=== PATIENT | male | born 1940 | race Caucasian/White ===

== ENCOUNTER → 2021-05-19 | Outpatient (CLI) | payer MEDICARE, SELFPAY ==
--- NOTE | 2021-05-19 12:58 | CT_ITS ---
STUDY: CT ABDOMEN AND PELVIS WITH CONTRAST REASON FOR EXAM: Male, 81 years old. POST ZARA FOB TEST-GI BLEED RADIATION DOSAGE (If Supplied By Facility): CTDIvol = ( 17.12 ) mGy, DLP = ( 929.12 ) mGycm TECHNIQUE: Transaxial images were obtained from the dome of the diaphragm to the symphysis pubis with oral contrast. Oral and amp; IV Readi-CAT and amp; 100mL Isovue-300 was administered. Sagittal and coronal images were reconstructed. Individualized dose optimization techniques were used for this CT. COMPARISON: None. FINDINGS: There are increased linear markings with areas of confluence at the lung bases suggestive of bibasilar atelectasis and/or scarring. Coronary artery calcification. There is calcification of the mitral valve annulus. Normal liver. I suspect tiny gallstones. There are multiple benign calcified granulomata of the spleen. Normal pancreas. Normal bilateral adrenal glands. Normal right kidney. There is a 2.4 cm cyst in the upper medial aspect of the left kidney. Normal visualized stomach. Normal small intestine. There are multiple colonic diverticula consistent with diverticulosis. Moderate amount of fecal material is seen in the colon. The appendix is visualized and appears normal. There is scattered atherosclerotic calcification of the abdominal aorta and its major visceral branches, without a demonstrated aneurysm. Normal inferior vena cava. Normal retroperitoneum. Normal urinary bladder. There is enlargement of the prostate gland. It measures 4.5 cm by 5.7 cm. This causes indentation at the bladder base. Normal abdominal wall. There are mild degenerative changes of the visualized lumbar spine. CT/Abdomen/Pelvis WITH Contrast IMPRESSION: Sigmoid diverticulosis. Moderate amount of fecal material is seen in the colon. Questionable tiny gallstones. Left renal cyst. Electronically Signed: Chirag Huizar MD at 14:09 EST , Service support ,
== END | disposition short-term general hospital (02) ==
PROVIDERS: PCP Internal Medicine; Referring Provider Internal Medicine Medical Oncology; Visit Provider Internal Medicine Medical Oncology
DX: K92.2 Gastrointestinal hemorrhage, unspecified (principal); D50.9 Iron deficiency anemia, unspecified
CPT/HCPCS: 74177; 96365; 96366; J1756; J7050; Q9967; A4216

== ENCOUNTER → 2021-06-07 14:42 | Outpatient (CLI) | payer MEDICARE, SELFPAY ==
[2021-06-07 16:06] LABS: Absolute Lymphocyte Count 1.07 X10^3/uL (0.83-4.51); Absolute Neutrophil Count 4.2 X10^3/uL (2.0-7.7); Basophil# 0.05 X10^3/uL; Basophil% 0.8 % (0-1); Eosinophil# 0.22 X10^3/uL; Eosinophils% 3.7 % (0-5); Hematocrit 30.4 % (40-54); Hemoglobin 9.5 g/dL (13.0-16.5); Lymphocyte # 1.07 X10^3/ul (0.83-4.51); Lymphocyte % 17.9 % (19-41); Mean Corp Hgb Conc 31.3 g/dL (32-36); Mean Corpuscular Hgb 32.6 pg (27.0-32.0); Mean Corpuscular Volume 104.5 fL (80-94); Mean Platelet Vol. 10.7 fl (6.2-12.0); Monocyte# 0.43 X10^3/uL; Monocyte% 7.2 % (0-10); NRBC Flagged by Analyzer 0 % (0-5); Neutrophil % 70.1 % (47-70); Platelet Count 163 K/mm3 (150-450); RBC Distribution Width CV 14.9 % (11.6-14.6); RBC Distribution Width SD 57.7 fl (35.1-43.9); RET-HE 36.9 pg (30-35); Red Blood Count 2.91 M/mm3 (4.6-6.2); Reticulocyte Count 1.57 % (0.5-1.5)
[2021-06-07 16:33] LABS: Ferritin 297 ng/mL (26-388); Iron 66 ug/dL (65-175); Iron Binding Capacity,Total 272 ug/dL (250-450); LDH 186 U/L (87-241); PERCENT IRON SATURATION 24.3 % (15.0-55.0)
[2021-06-09 09:07] LABS: Haptoglobin 157 mg/dL (34-355)
== END ==
PROVIDERS: PCP Internal Medicine; Visit Provider Nurse Practitioner Adult Health
DX: D50.9 Iron deficiency anemia, unspecified (principal); K92.2 Gastrointestinal hemorrhage, unspecified; R16.1 Splenomegaly, not elsewhere classified
CPT/HCPCS: 36415; 82728; 83010; 83540; 83550; 83615; 85025; 85045; 86880

== ENCOUNTER 2021-06-20 10:10 | Outpatient (CLI) | payer MEDICARE, SELFPAY ==
--- NOTE | 2021-06-20 10:16 | US_ITS ---
STUDY: ABDOMINAL ULTRASOUND - RIGHT UPPER QUADRANT REASON FOR VISIT: Male, 81 years old splenomegaly TECHNIQUE: Ultrasound evaluation of the right upper quadrant was performed with real-time and static dubon-scale imaging. TECHNICAL QUALITY: Adequate. COMPARISON: None. FINDINGS: Liver: The liver measures 15.6 cm. There is normal echogenicity of the liver. The bile ducts are within normal limits. There is hepatic color flow. The direction of portal flow is hepatopetal. There is no demonstrated mass lesion. Gallbladder: Normal distended gallbladder. The gallbladder wall measures 2.7 mm. There is a negative sonographic Prather''s sign. There is no pericholecystic fluid. There are no gallstones. Common Bile Duct (C.B.D.): The common bile duct measures 4.0 mm. Pancreas: Normal size of the head, body and tail of the pancreas. There is normal echogenicity of the pancreas. There is no demonstrated pancreatic mass or cyst. Right Kidney: Normal size of the right kidney. The right kidney measures 9.4 cm x 5.3 cm x 4.9 cm. Normal renal cortex. The right cortex measures 1.5 cm. There is no demonstrated renal mass or cyst. There is no right hydronephrosis. US/Liver IMPRESSION: Normal right upper quadrant ultrasound examination. Electronically Signed: Chirag Huizar MD at 14:23 EST , Service support ,
== END 2021-06-20 23:59 | disposition short-term general hospital (02) ==
LOC: US 10:13
PROVIDERS: PCP Internal Medicine; Referring Provider Nurse Practitioner Adult Health; Visit Provider Nurse Practitioner Adult Health
DX: R16.1 Splenomegaly, not elsewhere classified (principal)
CPT/HCPCS: 76705

== ENCOUNTER 2021-07-11 12:23 | Day surgery (SDC) | payer MEDICARE, SELFPAY ==
--- NOTE | 2021-07-11 | EGD_PTH ---
PATIENT: SAIGE HAGEN LOC: EN U#:[id number] AGE/SX: 81/M ROOM: RE07/11/[address]: Dr. Ashvin Jones DO : 1940 BED: DIS: 07/11/2021 SPEC #: [id number] RECD: 07/11/21 15:50 STATUS: JENNIFER GRAHAM #: [id number] RANULFO: 07/11/21 00:[address]: Ashvin Jones DEPT: SURGICAL PATHOLOGY RECD BY: Riley Gonsalez ENTERED: 07/12/21 09:34 SP TYPE: EGD BIOPSY CHARLES DR: Dr. Arvind Meyers MD Tissues: A - Gastric mucous membrane B - Transverse colon C - Sigmoid colon biopsy Procedures: Surgery Specimen Level IV HEADER OPERATION: Colonoscopy, EGD ([facility] [place]) PRE-OP DIAGNOSIS: Iron deficiency anemia, GI bleed, GI hemorrhage, splenomegaly TISSUE SUBMITTED: A ? Hepatic flexure biopsy, B ? Transverse colon biopsy, C ? Sigmoid polyp MICROSCOPIC DIAGNOSIS A. Colon at hepatic flexure, biopsy: Tubular adenoma. B. Transverse colon, biopsy: Tubular adenoma. C. Sigmoid colon polyp, biopsy: Tubular adenoma. AM:felicia 07/13/2021 MICROSCOPIC DESCRIPTION Slides are reviewed. GROSS DESCRIPTION A - Received in fixative is one container labeled with the patient's name and designated hepatic flexure biopsy. The specimen consists of one irregular fragment of light zavaleta soft tissue that measures 0.3 x 0.3 x 0.1 cm. The specimen is totally submitted in one cassette. B - Received in fixative is one container labeled with the patient's name and designated transverse colon biopsy. The specimen consists of one irregular fragment of light zavaleta soft tissue that measures 0.3 x 0.3 x 0.1 cm. The specimen is totally submitted in one cassette. C - Received in fixative is one container labeled with the patient's name and designated sigmoid polyp. The specimen consists of one irregular fragment of light zavaleta soft tissue that measures 0.4 x 0.2 x 0.1 cm. The specimen is totally submitted in one cassette. / AURORA:felicia 07/12/2021 TC:5 CPT: 55539 x3
[2021-07-11 12:50] VITALS: BP 137/58; PULSE 56; RESP 16; TEMP 36.4; O2SAT 100; BMI 26.9
[2021-07-11] MEDS: Lactated Ringers 1,000 ML 15 ML IV (13:02)
--- NOTE | 2021-07-11 13:48 | PCM.HP.BLA ---
History and Physical Date of Admission: 07/11/21 SAIGE HAGEN, is a 81 M who presents to the office today for evaluation of iron deficiency anemia. History of CKDIII and iron deficiency anemia requiring blood transfusions and later weekly iron transfusions. EGD and colonoscopy performed June 2020 and he reports they were normal. Stool occult 05/05/21 positive. Reports dark colored stool. CT abd/pel 05/19/21with findings of lung atelectasis and/or scarring. Coronary artery calcification. Tiny gallbladder stone suspect. Multiple diverticula consistent with diverticulosis. Moderate amount of fecal material in colon. Prostate enlargement. Left renal cyst. ROS Const Constitutional: No anorexia, fatigue, fever(s), weight change or sleep problems Eyes Eyes: No change in vision ENT ENT: No abnormal hearing, difficulty swallowing, mouth lesions, tongue swelling or throat swelling Resp Respiratory: No cough or shortness of breath Cardio Cardiology: No chest pain at rest, chest pain with exertion, shortness of breath or dyspnea on exertion Gastro GI: No difficulty swallowing Genitourinary Male: No difficulty urinating or burning urination Musc Musculoskeletal: No joint pain, joint swelling, muscle weakness or decreased muscle mass Skin Skin: No hair loss in leg, yellowing of the eye, itchy eyes, rash, skin ulcer or skin swelling Neuro Neurology: No abnormal hearing, abnormal movements, confusion, unsteady gait/balance or memory loss Psych Psychiatric: No anxiety, No confusion and No memory loss Endo Endocrine: No fatigue or weight change Aller/Imm Allergy/Immunologic: No itchy eyes, throat swelling or tongue swelling Tommy/Lymp Hematologic/Lymphatic: No easy bleeding, easy bruising or enlarged lymph nodes Assessment and Plan Assessment and Plan (1) Iron (Fe) deficiency anemia: Status: Acute Qualifiers: Iron deficiency anemia type: unspecified iron deficiency Qualified Code(s): D50.9 - Iron deficiency anemia, unspecified Comment: CKD associated with Iron deficiency Anemia, 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 Orders: Orders: Direct Antiglobulin Molly HARRIETT Today Ferritin Today Iron+Iron Binding Capacity Today LDH Today CBC W/Diff, Automated Today Retic Panel Count Today Plan - Dr. Lock Friend, DO: We will perform an upper and lower endoscopy and possible capsule endoscopy. We will also check labs for hemolysis including Molly test, ferritin, iron, TIBC, LDH, reticulocyte count. (2) GI bleed: Status: Acute Qualifiers: GI bleed type/associated pathology: unspecified gastrointestinal hemorrhage type Qualified Code(s): K92.2 - Gastrointestinal hemorrhage, unspecified Comment: FOBT positive stools R/O malignancy. CT a/p on 05/19/2021 is negative. Orders: Orders: Direct Antiglobulin Molly HARRIETT Today Ferritin Today Iron+Iron Binding Capacity Today LDH Today CBC W/Diff, Automated Today Retic Panel Count Today Plan - Dr. Ashvin Jones, DO: If patient is not found to have any bleeding in an upper or lower GI tract. Perform capsule endoscopy. (3) Splenomegaly: Status: Acute Orders: Orders: Direct Antiglobulin Molly HARRIETT Today Ferritin Today Iron+Iron Binding Capacity Today LDH Today CBC W/Diff, Automated Today Retic Panel Count Today Plan - Dr. Lock Friend, DO: Patient does have mild splenomegaly. He has no history of liver disease. We will have to evaluate his liver more thoroughly with an ultrasound and possibly FibroScan. Coding Level of Care Code Off vis,new,level 4 Diagnoses Iron (Fe) deficiency anemia D50.9 Iron deficiency anemia type: unspecified iron deficiency GI bleed K92.2 GI bleed type/associated pathology: unspecified gastrointestinal hemorrhage type Splenomegaly R16.1 I have re-examined the patient. There are no clinical changes since date of exam.
--- NOTE | 2021-07-11 14:27 | OP.CCLET_ITS ---
02/22/2022 Arvind Meyers Re : Upper GI endoscopy procedure for Deshawn Chatman Dear Luigi This procedure was performed on Sunday, July 11, 2021. My impressions and recommendations are as follows: Impressions : - Normal esophagus. - Medium-sized hiatal hernia. - Normal stomach. - Three bleeding angiodysplastic lesions in the duodenum. Treated with argon plasma coagulation (APC). - No specimens collected. Recommendations : - Discharge patient to home. - Resume previous diet. - Continue present medications. - Await pathology results. - Return to my office. My findings are described in the full procedure note, which is enclosed. If I can be of further assistance, please feel free to contact me at . Sincerely, Ashvin Friend, 07/11/2021 2:26:47 PM This report has been signed electronically.
--- NOTE | 2021-07-11 14:27 | OP.EGD_ITS ---
Patient Name: Deshawn Chatman Procedure Date: 07/11/2021 1:56 PM Date of : 1940 Age: 81 Procedure: Upper GI endoscopy Indications: Iron deficiency anemia Providers: Ashvin Jones DO Referring MD: Arvind Meyers Medicines: See the Anesthesia note for documentation of the administered medications Patient Profile: This is an 81 year old male. Refer to note in patient chart for documentation of history and physical. Patient has symptoms. Complications: No immediate complications. Procedure: Pre-Anesthesia Assessment: - Prior to the procedure, a History and Physical was performed, and patient medications and allergies were reviewed. The risks and benefits of the procedure and the sedation options and risks were discussed with the patient. All questions were answered and informed consent was obtained. Patient identification and proposed procedure were verified by the physician in the pre-procedure area. Mental Status Examination: alert and oriented. Airway Examination: normal oropharyngeal airway and neck mobility. Respiratory Examination: clear to auscultation. CV Examination: normal. Prophylactic Antibiotics: The patient does not require prophylactic antibiotics. Prior Anticoagulants: The patient has taken no previous anticoagulant or antiplatelet agents. After reviewing the risks and benefits, the patient was deemed in satisfactory condition to undergo the procedure. The anesthesia plan was to use moderate sedation / analgesia (conscious sedation). Immediately prior to administration of medications, the patient was re-assessed for adequacy to receive sedatives. The heart rate, respiratory rate, oxygen saturations, blood pressure, adequacy of pulmonary ventilation, and response to care were monitored throughout the procedure. The physical status of the patient was re-assessed after the procedure. After obtaining informed consent, the endoscope was passed under direct vision. Throughout the procedure, the patient's blood pressure, pulse, and oxygen saturations were monitored continuously. The Endoscope was introduced through the mouth, and advanced to the jejunum. The upper GI endoscopy was accomplished without difficulty. The patient tolerated the procedure well. Moderate Sedation: Moderate (conscious) sedation was administered by the endoscopy nurse and supervised by the endoscopist. The following parameters were monitored: oxygen saturation, heart rate, blood pressure, and response to care. Total physician intraservice time was 15 minutes. Scope In: 2:08:56 PM Scope Out: 2:22:12 PM Total Procedure Duration Time 0 hours 13 minutes 16 seconds Findings: The examined esophagus was normal. A medium-sized hiatal hernia was present. The entire examined stomach was normal. Three 5 mm angiodysplastic lesions with bleeding were found in the second portion of the duodenum, in the third portion of the duodenum and in the fourth portion of the duodenum. Coagulation for hemostasis using argon plasma at 0.3 liters/minute and 20 borrego was successful. Estimated blood loss was minimal. Impression: - Normal esophagus. - Medium-sized hiatal hernia. - Normal stomach. - Three bleeding angiodysplastic lesions in the duodenum. Treated with argon plasma coagulation (APC). - No specimens collected. Recommendation: - Discharge patient to home. - Resume previous diet. - Continue present medications. - Await pathology results. - Return to my office. Procedure Code(s): --- Professional --- 42911, Esophagogastroduodenoscopy, flexible, transoral; with control of bleeding, any method 09055, 59, Moderate sedation services provided by the same physician or other qualified health career information specialist performing the diagnostic or therapeutic service that the sedation supports, requiring the presence of an independent trained observer to assist in the monitoring of the patient's level of consciousness and physiological status; initial 15 minutes of intraservice time, patient age 5 years or older CPT copyright 2017 [employer]. All rights reserved. The codes documented in this report are preliminary and upon service counter cashier review may be revised to meet current compliance requirements. Ashvin Jones DO 07/11/2021 2:26:47 PM This report has been signed electronically. Number of Addenda: 1 Note Initiated On: 07/11/2021 1:56 PM Addendum Number: 1 Addendum Date: 02/22/2022 6:24:31 AM MAC was used instead of moderate sedation for the patient. Ashvin Jones DO 02/22/2022 6:24:37 AM This report has been signed electronically.
[2021-07-11 14:48] VITALS: BP 137/58; BP 156/64; PULSE 57; RESP 16; TEMP 36.4; O2SAT 98
--- NOTE | 2021-07-11 14:51 | OP.CCLET_ITS ---
02/22/2022 Arvind Meyers Re : Colonoscopy procedure for Deshawn Chatman Dear Luigi This procedure was performed on Sunday, July 11, 2021. My impressions and recommendations are as follows: Impressions : - One 5 mm polyp in the sigmoid colon in the transverse colon at the hepatic flexure, removed with a hot snare. Resected and retrieved. Recommendations : - Written discharge instructions were provided to the patient. - The signs and symptoms of potential delayed complications were discussed with the patient. - Patient has a contact number available for emergencies. - Return to normal activities tomorrow. - Resume previous diet. - Continue present medications. - Await pathology results. - Repeat colonoscopy in 3 years for surveillance of multiple polyps. - Return to GI office. My findings are described in the full procedure note, which is enclosed. If I can be of further assistance, please feel free to contact me at . Sincerely, Ashvin Jones, 07/11/2021 2:51:14 PM This report has been signed electronically.
--- NOTE | 2021-07-11 14:51 | OP.COLON_ITS ---
Patient Name: Deshawn Chatman Procedure Date: 07/11/2021 2:22 PM Date of : 1940 Age: 81 Procedure: Colonoscopy Indications: Iron deficiency anemia Providers: Ashvin Jones DO Referring MD: Arvind Meyers Medicines: See the Anesthesia note for documentation of the administered medications Patient Profile: This is an 81 year old male. Refer to note in patient chart for documentation of history and physical. Patient has symptoms. Last Colonoscopy: 1 year ago. Complications: No immediate complications. Procedure: Pre-Anesthesia Assessment: - Prior to the procedure, a History and Physical was performed, and patient medications and allergies were reviewed. The risks and benefits of the procedure and the sedation options and risks were discussed with the patient. All questions were answered and informed consent was obtained. Patient identification and proposed procedure were verified by the physician in the pre-procedure area. Mental Status Examination: alert and oriented. Airway Examination: normal oropharyngeal airway and neck mobility. Respiratory Examination: clear to auscultation. CV Examination: normal. Prophylactic Antibiotics: The patient does not require prophylactic antibiotics. Prior Anticoagulants: The patient has taken no previous anticoagulant or antiplatelet agents. After reviewing the risks and benefits, the patient was deemed in satisfactory condition to undergo the procedure. The anesthesia plan was to use moderate sedation / analgesia (conscious sedation). Immediately prior to administration of medications, the patient was re-assessed for adequacy to receive sedatives. The heart rate, respiratory rate, oxygen saturations, blood pressure, adequacy of pulmonary ventilation, and response to care were monitored throughout the procedure. The physical status of the patient was re-assessed after the procedure. After I obtained informed consent, the scope was passed under direct vision. Throughout the procedure, the patient's blood pressure, pulse, and oxygen saturations were monitored continuously. The colonoscope was introduced through the anus and advanced to the cecum, identified by appendiceal orifice and ileocecal valve. The colonoscopy was performed without difficulty. The patient tolerated the procedure well. The quality of the bowel preparation was good. Moderate Sedation: Moderate (conscious) sedation was administered by the endoscopy nurse and supervised by the endoscopist. The patient's oxygen saturation, heart rate, blood pressure and response to care were monitored. Total physician intraservice time was 15 minutes. Scope In: 2:30:03 PM Scope Withdrawal Time 0 hours 10 minutes 4 seconds Scope Out: 2:43:58 PM Total Procedure Duration Time 0 hours 13 minutes 55 seconds Findings: The perianal and digital rectal examinations were normal. A 5 mm polyp was found in the sigmoid colon transverse colon hepatic flexure. The polyp was sessile. Polypectomy was attempted, initially using a hot snare. Polyp resection was incomplete with this device. This intervention then required a different device and polypectomy technique. The polyp was removed with a hot snare. Resection and retrieval were complete. Impression: - One 5 mm polyp in the sigmoid colon in the transverse colon at the hepatic flexure, removed with a hot snare. Resected and retrieved. Recommendation: - Written discharge instructions were provided to the patient. - The signs and symptoms of potential delayed complications were discussed with the patient. - Patient has a contact number available for emergencies. - Return to normal activities tomorrow. - Resume previous diet. - Continue present medications. - Await pathology results. - Repeat colonoscopy in 3 years for surveillance of multiple polyps. - Return to GI office. Procedure Code(s): --- Professional --- 98110, Colonoscopy, flexible; with removal of tumor(s), polyp(s), or other lesion(s) by snare technique 52148, 59, Moderate sedation services provided by the same physician or other qualified health lawn care professional performing the diagnostic or therapeutic service that the sedation supports, requiring the presence of an independent trained observer to assist in the monitoring of the patient's level of consciousness and physiological status; initial 15 minutes of intraservice time, patient age 5 years or older CPT copyright 2017 [employer]. All rights reserved. The codes documented in this report are preliminary and upon energy manager review may be revised to meet current compliance requirements. Ashvin Jones DO 07/11/2021 2:51:14 PM This report has been signed electronically. Number of Addenda: 1 Note Initiated On: 07/11/2021 2:22 PM Addendum Number: 1 Addendum Date: 02/22/2022 6:24:46 AM MAC was used instead of moderate sedation for the patient. Ashvin Jones DO 02/22/2022 6:24:50 AM This report has been signed electronically.
[2021-07-11 14:55] VITALS: BP 137/58; BP 147/104; PULSE 50; RESP 16; O2SAT 99
[2021-07-11 15:00] VITALS: BP 137/58; BP 163/62; PULSE 53; RESP 16; O2SAT 99
[2021-07-11 15:05] VITALS: BP 137/58; BP 151/52; PULSE 45; RESP 16; TEMP 36.8; O2SAT 99
[2021-07-11 15:20] VITALS: BP 137/58
== END 2021-07-11 23:59 | disposition home or self-care (01) ==
LOC: EN 12:24 → AC 12:25
PROVIDERS: PCP Internal Medicine; Referring Provider Internal Medicine; Visit Provider Internal Medicine Gastroenterology
PROC: 0DJD8ZZ Inspection of Lower Intestinal Tract, Via Natural or Artificial Opening Endoscopic (ICD-10-PCS; CPT 45378; principal; 2021-07-11 13:40)
DX: K31.811 Angiodysplasia of stomach and duodenum with bleeding (principal); I50.30 Unspecified diastolic (congestive) heart failure; I11.0 Hypertensive heart disease with heart failure; K21.9 Gastro-esophageal reflux disease without esophagitis; K44.9 Diaphragmatic hernia without obstruction or gangrene; D12.3 Benign neoplasm of transverse colon; D12.5 Benign neoplasm of sigmoid colon; D50.9 Iron deficiency anemia, unspecified; I65.23 Occlusion and stenosis of bilateral carotid arteries; I25.2 Old myocardial infarction; E78.00 Pure hypercholesterolemia, unspecified; M10.9 Gout, unspecified; I44.0 Atrioventricular block, first degree; E07.9 Disorder of thyroid, unspecified; I25.10 Atherosclerotic heart disease of native coronary artery without angina pectoris; I35.0 Nonrheumatic aortic (valve) stenosis; R16.1 Splenomegaly, not elsewhere classified; Z90.49 Acquired absence of other specified parts of digestive tract; Z79.01 Long term (current) use of anticoagulants; Z79.899 Other long term (current) drug therapy; Z86.73 Personal history of transient ischemic attack (TIA), and cerebral infarction without residual deficits
CPT/HCPCS: 45385; 43255; 87426; 88305; J7120

== ENCOUNTER 2023-12-27 12:12 | Inpatient (IN) | payer MEDICARE, SELFPAY ==
[2023-12-27] VITALS (18 sets, daily range): BP systolic 92–147; BP diastolic 37–81; PULSE 47–64; RESP 13–19; TEMP 35.7–36.6; O2SAT 94–100; BMI 26.4
--- NOTE | 2023-12-27 12:45 | EX.ED.DYSGE1 ---
HPI <XAVIER Nicholas - Last Filed: 12/27/23 13:19> History of Present Illness Chief Complaint: GI Bleed Narrative Narrative: Patient is an 83-year-old male with a long history of WI, TIA/stroke who is currently on Eliquis twice a day history of chronic anemia, chronic kidney disease history of GI bleeding who presents to the emergency department from outpatient hematology/oncology. The patient over the last several weeks has been going to [facility] and receiving blood transfusions, today, they did check the patient's stool which is positive for bleeding. I spoke with the nurse practitioner taking care of this patient at the hematology office, the plan will be to admit the patient, to speak with Dr. Jones and do a GI workup. Patient denies any pain. Last blood transfusion was today. Patient also had some personal issues such as his son committed suicide yesterday, so there is added stress. Patient is here for evaluation. Patient did have a positive stool occult today as well as 1 unit of packed red blood cells given today. PFSH <XAVIER Nicholas - Last Filed: 12/27/23 13:19> [facility] Medical History Hypersomnia Anxiety and depression Periodic limb movement Vitamin D deficiency Chronic kidney disease, stage 3 unspecified Angiodysplasia of duodenum with hemorrhage Sinus bradycardia Diverticulosis Macrocytosis Wears hearing aid Wears glasses Wears dentures Depression Thyroid disease Gout History of renal disease Low iron Anemia High cholesterol Restless legs Gastric reflux Non-smoker Shortness of breath on exertion History of echocardiogram History of stress test Hypertension Cardiology follow-up encounter Hx of cardiac murmur History of heart attack Aortic stenosis Diastolic heart failure CVA (cerebral vascular accident) Accelerated essential hypertension Home Medications ?Medication ?Instructions ?Recorded ?Last Taken ?Type allopurinol 100 mg tablet 100 mg PO DAILY 04/20/21 12/27/23 History arctic sea 4 tablet PO DAILY 04/20/21 12/27/23 History ferrous gluconate 325 mg (37 mg 325 mg PO BID 04/20/21 12/27/23 History iron) tablet niacin 500 mg tablet 500 mg PO DAILY 04/20/21 12/27/23 History pantoprazole 40 mg tablet,delayed 40 mg PO DAILY 04/20/21 12/27/23 History release simvastatin 40 mg tablet 40 mg PO DAILY 04/20/21 12/27/23 History topiramate 50 mg tablet 50 mg PO BID 04/20/21 12/27/23 History vitamins A,C,G-ylbi-zlkxmn 4,296 1 cap PO BID 04/20/21 12/27/23 History mcg-226 mg-90 mg capsule (PreserVision AREDS) lisinopril 5 mg tablet 5 mg PO DAILY 05/19/21 12/27/23 History buspirone 10 mg tablet 10 mg PO BID 12/26/23 12/27/23 History ezetimibe 10 mg tablet 10 mg PO DAILY 12/26/23 12/27/23 History nitroglycerin 0.4 mg sublingual 0.4 mg sublingual Q5M PRN chest 12/26/23 Unknown History tablet pain apixaban 2.5 mg tablet (Eliquis) 2.5 mg PO BID 12/27/23 12/27/23 History levothyroxine 150 mcg tablet 150 mcg PO DAILY 12/27/23 12/27/23 History mecobalamin (vitamin B12) 2,500 2,500 mcg PO DAILY 12/27/23 12/27/23 History mcg chewable tablet sertraline 100 mg tablet 100 mg PO Q24H 12/27/23 12/27/23 History Allergy/AdvReac Type Severity Reaction Status Date / Time bee venom protein (honey bee) Allergy Anaphylaxis Verified 12/27/23 12:14 Family History Mother CVA (cerebral vascular accident) Father CHF (congestive heart failure) Surgical History History of tonsillectomy History of colonoscopy History of coronary artery stent placement Hx of appendectomy Social History Smoking Status: Never smoker alcohol intake: current alcohol intake frequency: a few times a month substance use type: does not use ROS <XAVIER Nicholas - Last Filed: 12/27/23 13:19> ROS ED ROS Narrative Constitutional: Negative for fever, chills, weight loss. Positive for weakness Eyes: Negative for vision loss, vision change, double vision ENT: Negative for any sore throat, ear pain, congestion Cardiovascular: Negative for any chest pain, tightness, palpitations Respiratory: Negative for any cough, sputum production, hemoptysis, dyspnea, dyspnea on exertion, orthopnea Gastrointestinal: Negative for any abdominal pain, nausea, vomiting, diarrhea, constipation, blood in vomit. Positive blood in the stool : Negative for any urinary frequency, dysuria, retention, blood in urine Muscle skeletal: Negative for any neck pain, back pain Neurological: Negative for any headache, syncope, dizziness Skin: Negative for any rashes, itching, abrasions, lacerations Psychiatric: Negative for any depression, anxiety, stress, suicidal ideation, homicidal ideation Hematologic: Negative for any excessive bruising, easy bleeding EXAM <XAVIER Nicholas - Last Filed: 12/27/23 13:19> Physical Exam Narrative Exam Narrative: Vital signs reviewed. Vital signs are stable, patient does have a pale appearance. HEET: Head normocephalic atraumatic, TMs clear bilaterally. Posterior pharynx is clear, moist mucous membranes. Nares clear bilaterally. Neck: Supple with no lymphadenopathy or tenderness. No signs of meningismus. Cardiac: Bradycardic rhythm with a systolic murmur, no gallops or rubs, equal peripheral pulses bilaterally. Respiratory: Lungs clear to auscultation bilaterally. No chest tenderness. Abdomen: Soft, nontender, nondistended. No abdominal bruit or pulsatile masses. No hepatosplenomegaly Extremities: No peripheral edema, no signs of gross trauma or deformity. Active full range of motion of all extremities. Neuro: Cranial nerves II through XII intact, no focal neurological deficits. Skin: Clean dry and intact with no rash, purpura, petechiae, vesicles or pustules. Backs/flank: No CVA tenderness, no midline spinal tenderness, no deformity. Psych: Normal mood and affect. No SI, HI or acute psychosis. Const Vital Signs: 12/27/23 12:12 12/27/23 13:08 12/27/23 13:18 Temperature 96.3 F L 98 F Temperature Source Temporal Pulse Rate 55 L 57 L 56 L Respiratory Rate 14 19 H 13 Blood Pressure 130/47 H 140/53 H 125/51 H Blood Pressure Mean 74 82 75 Pulse Ox 100 95 95 Oxygen Delivery Method Room Air <Dr. Emiliana Travis DO - Last Filed: 12/27/23 13:27> Physical Exam Const Vital Signs: 12/27/23 12:12 12/27/23 13:08 12/27/23 13:18 Temperature 96.3 F L 98 F Temperature Source Temporal Pulse Rate 55 L 57 L 56 L Respiratory Rate 14 19 H 13 Blood Pressure 130/47 H 140/53 H 125/51 H Blood Pressure Mean 74 82 75 Pulse Ox 100 95 95 Oxygen Delivery Method Room Air [facility] <XAVIER Nicholas - Last Filed: 12/27/23 13:19> [facility] Lab Data Labs: Laboratory Results - last 24 hr 12/27/23 12:45 WBC 6.0 RBC 2.28 L Hgb 7.4 L Hct 23.5 L MCV 103.1 H MCH 32.5 H MCHC 31.5 L RDW Std Deviation 62.4 H RDW Coeff of Marcia 16.8 H Plt Count 146 L MPV 9.9 Immature Gran % (Auto) 0.500 Neut % (Auto) 65.6 Lymph % (Auto) 21.6 [place] % (Auto) 8.6 Eos % (Auto) 3.0 Baso % (Auto) 0.7 Absolute Neuts (auto) 4.0 Absolute Lymphs (auto) 1.30 Nucleated RBC % 0 PT 15.8 H INR 1.3 Sodium 141 Potassium 5.5 H Chloride 120 H Carbon Dioxide 18.0 L Anion Gap 3 L BUN 80 H Creatinine 2.19 H Est GFR (MDRD) Af Amer 37 L Est GFR (MDRD) Non-Af 31 L BUN/Creatinine Ratio 36.5 H Glucose 107 H Calcium 8.6 Total Bilirubin 0.60 AST 13 L ALT 20 Alkaline Phosphatase 73 Total Protein 5.8 L Albumin 2.9 L Globulin 2.9 Albumin/Globulin Ratio 1.0 Treatment and Re-Evaluation :: Differential diagnosis includes however is not limited to: Acute rectal bleeding, upper GI bleed, lower GI bleed, anemia, weakness Patient appears to be in no obvious respiratory distress vital signs are stable, patient is nontoxic-appearing. Presenting to the emergency department for continued blood in stool, being on Eliquis, receiving multiple blood transfusions. Patient will receive some basic laboratory values, patient's hemoglobin was 7.2 yesterday, patient did receive 1 unit of blood this morning, patient also had a positive stool occult this morning. Patient is here to be admitted to the hospital to be evaluated by Dr. Jones. Patient on reevaluation was in no distress. Patient's CBC shows a hemoglobin of 7.4, this is only slight increase after 1 unit of packed red blood cells. Patient's PT shows 15.8, INR 1.3, I did reach out to Dr. Jones, he does plan on taking the patient to do a scope today. I will reach out to the hospitalist to admit the patient. Spoke with hospitalist, he will admit the patient to PCU full. Spoke with Dr. Jones, the plan will be to scope the patient today. Patient made aware, patient stable for admission. <Dr. Emiliana Travis, DO - Last Filed: 12/27/23 13:27> [facility] MDM Narrative Medical decision making narrative: I have personally performed a face to face assessment of the patient and have reviewed the CHESTER Note. I performed a substantive portion of the visit including all aspects of the following. My ruvalcaba findings include: History is [patient presents the emergency department with complaint of anemia and GI bleed. Patient states that he has been receiving blood over the last several weeks. He had 2 units of packed red cells 4 days ago and 1 unit yesterday. Patient has positive Hemoccult. Refer to the ER for admission and evaluation by GI. Patient denies abdominal pain. No history of peptic ulcer disease. Patient on Eliquis for history of stroke. Patient generally has had some exertional dyspnea and generalized weakness.] Exam is [HEENT-PERRLA, EOMI. Cranial nerves II through XII grossly intact. TMs clear. Mucous membranes moist. No adenopathy. Patient pale appearing with some conjunctival pallor. Cardiovascular-regular rate and rhythm without murmur or ectopy Lungs-clear to auscultation, chest wall stable without crepitus or subcu emphysema Abdomen-normoactive bowel sounds, soft, nontender, no rebound or rigidity, no peritoneal signs. Extremities-intact ?4, normal range of motion, normal pulses, atraumatic] Medical Decison Making [IV line established. CBC with differential obtained showing a 6.0 with hemoglobin 7.4 and platelet count of 146. Chemistries show sodium 141 with potassium 5.5 and chloride 120 and CO2 of 18. BUN was 80 and creatinine 2.19. LFTs unremarkable. Case was discussed with behavioral health case manager who recommended admission for EGD and possible colonoscopy to evaluate source of bleeding. Case will be discussed with hospitalist to evaluate patient for admission.] Other additions or changes: [None] Lab Data Attestation: I reviewed the patient's lab results. Labs: Laboratory Results - last 24 hr 12/27/23 12:45 WBC 6.0 RBC 2.28 L Hgb 7.4 L Hct 23.5 L MCV 103.1 H MCH 32.5 H MCHC 31.5 L RDW Std Deviation 62.4 H RDW Coeff of Marcia 16.8 H Plt Count 146 L MPV 9.9 Immature Gran % (Auto) 0.500 Neut % (Auto) 65.6 Lymph % (Auto) 21.6 [place] % (Auto) 8.6 Eos % (Auto) 3.0 Baso % (Auto) 0.7 Absolute Neuts (auto) 4.0 Absolute Lymphs (auto) 1.30 Nucleated RBC % 0 PT 15.8 H INR 1.3 Sodium 141 Potassium 5.5 H Chloride 120 H Carbon Dioxide 18.0 L Anion Gap 3 L BUN 80 H Creatinine 2.19 H Est GFR (MDRD) Af Amer 37 L Est GFR (MDRD) Non-Af 31 L BUN/Creatinine Ratio 36.5 H Glucose 107 H Calcium 8.6 Total Bilirubin 0.60 AST 13 L ALT 20 Alkaline Phosphatase 73 Total Protein 5.8 L Albumin 2.9 L Globulin 2.9 Albumin/Globulin Ratio 1.0 Discharge Plan Dx/Rx/DC Orders Clinical Impression: Acute on chronic anemia, GI bleed Disposition Disposition: Acute Care Hospital [facility]
[2023-12-27 12:51] LABS: Basophil# 0.04 X10^3/uL; Basophil% 0.7 % (0-1); Eosinophil# 0.18 X10^3/uL; Hematocrit 23.5 % (40-54); Hemoglobin 7.4 g/dL (13.0-16.5); Lymphocyte % 21.6 % (19-41); Mean Corp Hgb Conc 31.5 g/dL (32-36); Mean Corpuscular Hgb 32.5 pg (27.0-32.0); Mean Corpuscular Volume 103.1 fL (80-94); Mean Platelet Vol. 9.9 fl (6.2-12.0); Monocyte# 0.52 X10^3/uL; Monocyte% 8.6 % (0-10); NRBC Flagged by Analyzer 0 % (0-5); Neutrophil # 3.95 X10^3/uL (2.7-7.7); Neutrophil % 65.6 % (47-70); Platelet Count 146 K/mm3 (150-450); RBC Distribution Width CV 16.8 % (11.6-14.6); RBC Distribution Width SD 62.4 fl (35.1-43.9); Red Blood Count 2.28 M/mm3 (4.6-6.2)
[2023-12-27 13:00] LABS: International Normalized Ratio 1.3; Prothrombin Time (Protime)PT. 15.8 SECONDS (11.7-14.9)
[2023-12-27 13:08] LABS: AST(SGOT) 13 U/L (15-37); Alanine Aminotransfer ALT/SGPT 20 U/L (16-61); Albumin, Serum 2.9 g/dL (3.2-5.0); Alkaline Phosphatase 73 U/L (45-117); Anion Gap 3 (5-15); BUN 80 mg/dL (7-18); BUN/Creat Ratio 36.5 RATIO (10-20); Calcium,Total 8.6 mg/dL (8.5-10.1); Chloride 120 mmol/L (98-107); Creatinine, Serum 2.19 mg/dL (0.70-1.30); EST Glomerular Filtration Rate 31 mL/min (>60); Est Glom Filt Rate - Afr Amer 37 mL/min (>60); Globulin 2.9 g/dL (2.2-4.2); Glucose 107 mg/dL (74-106); Potassium 5.5 mmol/L (3.5-5.1); Protein, Total 5.8 g/dL (6.4-8.2); Sodium Level 141 mmol/L (136-145)
--- NOTE | 2023-12-27 13:13 | HP.PCM.HOS_ITS ---
[facility] - General General Date of Admission: 12/27/23 Date of Service: 12/27/23 Chief Complaint: Severe anemia. Stool for occult blood positive. HPI Narrative SAIGE HAGEN, is a 83 M who was sent to ED from outpatient hematology office for stool for occult blood positive and severe anemia. For last several weeks, patient has been receiving PRBC transfusion at [facility]. When asked about blood in the stool, patient states he flushes the stool and does not see it but states she did not notice black stool bright red in stool. Denies hematemesis nausea or vomiting. No acute symptoms pertaining to chest chest pain or shortness of breath or palpitation. Patient has history of a stroke 2 times in the past and is on Eliquis 2.5 mg twice daily. Patient also has chronic kidney disease and follows Dr. Sosa hematology oncology office. In ED, blood pressure 130/47 heart rate 55/min. No hypoxia or tachypnea. Labs show H&H 7.4/23.5%. GI consulted from ED. The patient is being taken to endoscopy suite for EGD [facility] Medical History Hypersomnia Anxiety and depression Periodic limb movement Vitamin D deficiency Chronic kidney disease, stage 3 unspecified Angiodysplasia of duodenum with hemorrhage Sinus bradycardia Diverticulosis Macrocytosis Wears hearing aid Wears glasses Wears dentures Depression Thyroid disease Gout History of renal disease Low iron Anemia High cholesterol Restless legs Gastric reflux Non-smoker Shortness of breath on exertion History of echocardiogram History of stress test Hypertension Cardiology follow-up encounter Hx of cardiac murmur History of heart attack Aortic stenosis Diastolic heart failure CVA (cerebral vascular accident) Accelerated essential hypertension Home Medications ?Medication ?Instructions ?Recorded ?Last Taken ?Type allopurinol 100 mg tablet 100 mg PO DAILY 04/20/21 12/27/23 History arctic sea 4 tablet PO DAILY 04/20/21 12/27/23 History ferrous gluconate 325 mg (37 mg 325 mg PO BID 04/20/21 12/27/23 History iron) tablet niacin 500 mg tablet 500 mg PO DAILY 04/20/21 12/27/23 History pantoprazole 40 mg tablet,delayed 40 mg PO DAILY 04/20/21 12/27/23 History release simvastatin 40 mg tablet 40 mg PO DAILY 04/20/21 12/27/23 History topiramate 50 mg tablet 50 mg PO BID 04/20/21 12/27/23 History vitamins A,C,U-umtx-xgxgxj 4,296 1 cap PO BID 04/20/21 12/27/23 History mcg-226 mg-90 mg capsule (PreserVision AREDS) lisinopril 5 mg tablet 5 mg PO DAILY 05/19/21 12/27/23 History buspirone 10 mg tablet 10 mg PO BID 12/26/23 12/27/23 History ezetimibe 10 mg tablet 10 mg PO DAILY 12/26/23 12/27/23 History nitroglycerin 0.4 mg sublingual 0.4 mg sublingual Q5M PRN chest 12/26/23 Unknown History tablet pain apixaban 2.5 mg tablet (Eliquis) 2.5 mg PO BID 12/27/23 12/27/23 History levothyroxine 150 mcg tablet 150 mcg PO DAILY 12/27/23 12/27/23 History mecobalamin (vitamin B12) 2,500 2,500 mcg PO DAILY 12/27/23 12/27/23 History mcg chewable tablet sertraline 100 mg tablet 100 mg PO Q24H 12/27/23 12/27/23 History Allergy/AdvReac Type Severity Reaction Status Date / Time bee venom protein (honey bee) Allergy Anaphylaxis Verified 12/27/23 12:14 Family History Mother CVA (cerebral vascular accident) Father CHF (congestive heart failure) Surgical History History of tonsillectomy History of colonoscopy History of coronary artery stent placement Hx of appendectomy Social History Smoking Status: Never smoker alcohol intake: current alcohol intake frequency: a few times a month substance use type: does not use ROS ROS Narrative Constitutional: Reports chronic fatigue and weakness but no acute symptoms. No fever. HEENT: Reports systems reviewed and no addt'l complaints, except as documented Respiratory/Chest: No acute shortness of breath or respiratory distress or wheezing. CVS: No chest pain pressure or tightness. Aortic stenosis murmur Gastrointestinal: Denies coffee ground emesis, hematemesis or vomiting Genitourinary: Denies recent oliguria or hematuria. Denies burning urination or new urinary tract symptoms Musculoskeletal: Denies acute joint pain or limited range of motion. No acute injury Neurologic: Denies seizure-like symptoms. History of stroke in the past skin: No ulcer. No rash Endocrinology: Reports systems reviewed and no addt'l complaints, except as documented Hematologic/Lymphatic: Reports systems reviewed and no addt'l complaints, except as documented Rest 14 ROS are negative except as mentioned in HPI Vital Signs Vital Signs Vital Signs: 12/27/23 12:12 12/27/23 13:08 Temperature 96.3 F L 98 F Temperature Source Temporal Pulse Rate 55 L 57 L Respiratory Rate 14 19 H Blood Pressure 130/47 H 140/53 H Blood Pressure Mean 74 82 Pulse Ox 100 95 Oxygen Delivery Method Room Air Physical Exam Narrative General: Alert, Oriented x3, Cooperative, average build. HEENT: Atraumatic, PERRLA, EOMI, Normocephalic Oral: Oral mucosa dry. No Gingival or Mucosal Lesions/ Ulcerations Neck: Supple, No JVD, Negative Carotid Bruits Chest wall/Lungs: Air entry diminished in bilateral lung bases. No crepitation/rhonchi Cardiovascular: Regular rate, Regular Rhythm, Normal S1, Normal S2, systolic murmur present over right second ICS with radiation to carotids., Grade 5/6 Abdomen: Bowel Sounds Present, Soft, Non Tender, Non-Distended : No dysuria. No renal angle tenderness. No suprapubic tenderness. Extremities: No edema, Capillary Refill Less than 3 Seconds Skin: No rashes, No breakdown Musculoskeletal: No Tenderness to Palpation of Joints or Extremities. ROM full and intact. Neurological: Cranial nerves II-XII grossly intact, DTR 2+/4. No acute focal neurological deficit. Psych/Mental Status: Normal Affect, Appropriate. Results Lab / Micro Data 12/27/23 12:45 12/27/23 12:45 Labs: Laboratory Results - last 24 hr 12/27/23 12:45: WBC 6.0, RBC 2.28 L, Hgb 7.4 L, Hct 23.5 L, MCV 103.1 H, MCH 32.5 H, MCHC 31.5 L, RDW Std Deviation 62.4 H, RDW Coeff of Marcia 16.8 H, Plt Count 146 L, MPV 9.9, Immature Gran % (Auto) 0.500, Neut % (Auto) 65.6, Lymph % (Auto) 21.6, [place] % (Auto) 8.6, Eos % (Auto) 3.0, Baso % (Auto) 0.7, Absolute Neuts (auto) 4.0, Absolute Lymphs (auto) 1.30, Nucleated RBC % 0, PT 15.8 H, INR 1.3, Sodium 141, Potassium 5.5 H, Chloride 120 H, Carbon Dioxide 18.0 L, Anion Gap 3 L, BUN 80 H, Creatinine 2.19 H, Est GFR (MDRD) Af Amer 37 L, Est GFR (MDRD) Non-Af 31 L, BUN/Creatinine Ratio 36.5 H, Glucose 107 H, Calcium 8.6, Total Bilirubin 0.60, AST 13 L, ALT 20, Alkaline Phosphatase 73, Total Protein 5.8 L, Albumin 2.9 L, Globulin 2.9, Albumin/Globulin Ratio 1.0 Assessment & Plan Assessment/Plan (1) Acute on chronic anemia: (2) GI bleed: QUALIFIERS: GI bleed type/associated pathology: unspecified gastrointestinal hemorrhage type Qualified Code(s): K92.2 - Gastrointestinal hemorrhage, unspecified PLAN: Plan This is a 83-year-old gentleman is being admitted for severe anemia, stool for occult blood found positive and upper GI bleed 1. Acute upper GI bleed: Patient is being admitted in PCU but direct liquid endoscopy seen. IV pantoprazole 40 mg every 12 hourly. GI is consulted. Monitor vitals. Patient had last dose of Eliquis 2.5 mg twice daily today in the morning. EGD and colonoscopy July 11, 2021 Impression: - Normal esophagus. - Medium-sized hiatal hernia. - Normal stomach. - Three bleeding angiodysplastic lesions in the duodenum. Treated with argon plasma coagulation (APC). Impression: - One 5 mm polyp in the sigmoid colon in the transverse colon at the hepatic flexure, removed with a hot snare. Resected and retrieved. 2. Acute on chronic severe anemia: His anemia is multifactorial including chronic iron deficiency anemia but is resistant to oral iron supplement, CKD and due to Eliquis: H&H 7.4/23.5%. It was 7.2 on 12/25 yesterday. Last hemoglobin 10.0 in February 2023. Patient has been getting regular PRBC transfusion in [facility] and follows account retention representative Dr. Ignacio. 3. CKD stage IV: BUNs/creatinine elevated 80/2.19. Patient has chronically elevated creatinine since 2021. It averages around 2.2-2.5. Patient follows outside prop sawyer. 4. Chronic cardiac conditions: CAD status post stent, aortic stenosis: Twelve- lead EKG ordered. Continue home cardiac medications except Eliquis. 5. Hypothyroidism: Levothyroxine home dose 150 mcg continued 6. Chronic CVA: Patient stated he had to stroke in the past and is on Eliquis 2.5 mg twice daily for that. Hold Eliquis 7. Other comorbidities include hypertension, dyslipidemia, GERD with hiatus hernia, and restless leg syndrome: No acute issues. Blood pressure is controlled. Continue lisinopril 5 mg daily. On simvastatin 40 mg daily and Zetia 10 mg daily. 8. DVT prophylaxis: Pharmacological prophylaxis contraindicated. Bilateral SCDs. Living will/advanced directive/end of life care: Patient does not have living will or advanced directive. His is next of kin and present in the ED. After discussion of benefits/risks procedures involved with full code, DNR CC arrest and DNR CC, the patient opted for full code. Patient does want artificial life support including intubation, tube feed, ventilator and/chest compression, central venous catheter, vasopressor and DC shock if needed Total time spent in [id number] encounter in discussion of advanced directive 17 minutes. Laboratory Results 12/27/23 12:45: WBC 6.0, RBC 2.28 L, Hgb 7.4 L, Hct 23.5 L, MCV 103.1 H, MCH 32.5 H, MCHC 31.5 L, RDW Std Deviation 62.4 H, RDW Coeff of Marcia 16.8 H, Plt Count 146 L, MPV 9.9, Immature Gran % (Auto) 0.500, Neut % (Auto) 65.6, Lymph % (Auto) 21.6, [place] % (Auto) 8.6, Eos % (Auto) 3.0, Baso % (Auto) 0.7, Absolute Neuts (auto) 4.0, Absolute Lymphs (auto) 1.30, Nucleated RBC % 0, PT 15.8 H, INR 1.3, Sodium 141, Potassium 5.5 H, Chloride 120 H, Carbon Dioxide 18.0 L, Anion Gap 3 L, BUN 80 H, Creatinine 2.19 H, Est GFR (MDRD) Af Amer 37 L, Est GFR (MDRD) Non- Af 31 L, BUN/Creatinine Ratio 36.5 H, Glucose 107 H, Calcium 8.6, Total Bilirubin 0.60, AST 13 L, ALT 20, Alkaline Phosphatase 73, Total Protein 5.8 L, Albumin 2.9 L, Globulin 2.9, Albumin/Globulin Ratio 1.0 Charges/Coding Visit Charges Inpatient E&M: 92329 Init Hosp L3 Procedures Hospitalists Procedures: 61556 Advncd Care Plan 30 Min
--- NOTE | 2023-12-27 13:37 | ED.RN ---
Patient went to surgery. Nothing coompleted. No prior knowledge of surgery first
--- NOTE | 2023-12-27 13:41 | PRE.ANES_ITS ---
ASA Classification* ASA Classification ASA Classification: 3 and E Assessment & Plan Anesthesia* Anesthesia Assessment Anesthesia Assessment: Discussed sedation and/or anesthesia options, risks, benefits, and alternatives with patient/parents/legal guardian/POA. Questions invited. The patient/parents/legal guardian/POA seems to understand and agrees to proceed with anesthesia plan. Reviewed the physical assessment, medical history, allergy history and patient home medications list prior to surgery/procedure/anesthetic and documented any changes. Performed airway and anesthesia risk assessments. Anesthesia Type Anesthesia Type: MAC History Source History Obtained from:: Patient and Chart Anesthesia Focused Assessment* Temperature: 98 F Pulse Rate: 56 Blood Pressure: 125/51 Respiratory Rate: 13 Pulse Ox: 95 Oxygen Delivery Method: Room Air Airway Assessment Mouth opens: >3 cm Mallampati Score: II Teeth Condition: Dentures (Patient states that his dentures are glued and do not easily come out) and Full Neck Range of motion (ROM): Full ROM Pertinent Findings EKG Pertinent Findings:: March 10, 2021. Sinus bradycardia with first- degree AV block. No change from 2018. Stress Test Pertinent Findings:: March 10, 2021. No ischemia or infarction noted. Ejection fraction is 53%. ECHO Pertinent Findings:: March 10, 2021. Ejection fraction 55 to 60%. Moderate aortic stenosis. 1-2+ aortic insufficiency. Right ventricular systolic pressure is 25 to 30 mmHg. Focused Labs Anesthesia Preop lab: CBC WBC 6.0 K/mm3 (4.4-11.0) 12/27/23 12:45 RBC 2.28 M/mm3 (4.6-6.2) L 12/27/23 12:45 Hgb 7.4 g/dL (13.0-16.5) L 12/27/23 12:45 Hct 23.5 % (40-54) L 12/27/23 12:45 Plt Count 146 K/mm3 (150-450) L 12/27/23 12:45 CHEMISTRY Potassium 5.5 mmol/L (3.5-5.1) H 12/27/23 12:45 Sodium 141 mmol/L (136-145) 12/27/23 12:45 Magnesium Pending 12/27/23 12:45 BUN 80 mg/dL (7-18) H 12/27/23 12:45 Creatinine 2.19 mg/dL (0.70-1.30) H 12/27/23 12:45 Glucose 107 mg/dL (74-106) H 12/27/23 12:45 TSH 3.02 uIU/mL (0.358-3.74) 12/26/23 10:25 COAG PT 15.8 SECONDS (11.7-14.9) H 12/27/23 12:45 Pre-Assessment Diagnosis/Proposed Procedure Planned Operative Procedure(s): EGD Anesthesia History Anesthesia History - mergers and acquisitions consultant: Anesthesia History - mergers and acquisitions consultant Hx Hospitalization No 07/10/21 11:23 Any Problems With Anesthesia No 07/10/21 11:23 Cholinesterase deficiency No 07/10/21 11:23 You/Your Family Experience No 07/10/21 11:23 fever (hyperthermia) with Relationship Recent Exposure to Contagious No 07/11/21 12:50 Disease Does patient have nerve No 07/10/21 11:23 stimulator Patient instructed to have device shut off --Does patient have Pacemaker or ICD? When Was Last Pacemaker Check QUESTION #4 FULL TEXT: You/Your Family Experience fever (hyperthermia) with Anesthesia Last Oral Intake Last Oral intake: Last Oral Intake NPO since Meds taken in AM with sips of water? Meds patient instructed to take am of surgery Any additional information?: Yes NPO since: 06:00 Meds taken in AM with sips of water?: Yes PONV PONV - mergers and acquisitions consultant: PONV - mergers and acquisitions consultant Female HX of Motion Sickness HX of N/V After Surgery Non-Smoker Duration of Surgery greater than 60 minutes Number of Risk Factors PONV Score Height & Weight Height & Weight: Anesthesia: Height & Weight Height 5 ft 7 in 12/27/23 12:12 Respiratory Assessment Respiratory Assessment - mergers and acquisitions consultant: Respiratory Tract Infection Hx - mergers and acquisitions consultant Hx Respiratory Tract Infection No 07/10/21 11:23 STOP Sleep Apnea STOP Sleep Apnea - mergers and acquisitions consultant: STOP Sleep Apnea - mergers and acquisitions consultant Hx Hypertension Yes: CONTROLLED WITH MED 12/27/23 08:51 Hx Sleep Apnea No 07/10/21 11:23 CPAP BIPAP Do you snore loudly (louder than talking or can be heard Do you often feel tired/ fatigued/ sleepy during daytime? Has anyone observed you stop breathing during sleep? STOP Results QUESTION #5 FULL TEXT : Do you snore loudly (louder than talking or can be heard through closed doors)? Tobacco Use History Tobacco Use History - mergers and acquisitions consultant: Tobacco Use History - mergers and acquisitions consultant Tobacco Use Smoking Status Never smoker 12/27/23 12:14 Hx Tobacco Use No 07/10/21 11:23 Years Smoking Packs Smoked per Day Smoking Cessation Date was within the last 15 years Hx Smoking Cessation Date Hx Smoking Cessation Counseling Hematologic Medial History Hematologic Hx - mergers and acquisitions consultant: Hematologic Medical Hx - shield operator Hx of Blood Transfusion Hx of Transfusion in last 3 Months Date of Last Transfusion (if within last 3 months) Ever experience any problems with transfusion(s)? Specify any problems Hx of Preganancy in last 3 Months Nurse Filling Out Transfusion & Questions: Date: Time: Patient unable to answer at this time (ie. confused, unrespo /Reproduction History /Reproductive History - mergers and acquisitions consultant: /Reproductive Hx- mergers and acquisitions consultant Hx Now Gestational Age (in weeks): EDC: Hx Hx Para Hx Section SAB No 07/10/21 11:23 Active Medications Active Medications: Current Medications Generic Name Dose Route Start Last Admin Trade Name Freq PRN Reason Stop Dose Admin Pantoprazole Sodium 40 mg/ 110 mls @ 330 mls/hr 12/27/23 13:24 Sodium Chloride IV Q12 TIFFANY Sodium Chloride 1,000 mls @ 75 mls/hr 12/27/23 13:24 IV 12/28/23 02:43 .[id number] TIFFANY PFSH Medical History Hypersomnia Anxiety and depression Periodic limb movement Vitamin D deficiency Chronic kidney disease, stage 3 unspecified Angiodysplasia of duodenum with hemorrhage Sinus bradycardia Diverticulosis Macrocytosis Wears hearing aid Wears glasses Wears dentures Depression Thyroid disease Gout History of renal disease Low iron Anemia High cholesterol Restless legs Gastric reflux Non-smoker Shortness of breath on exertion History of echocardiogram History of stress test Hypertension Cardiology follow-up encounter Hx of cardiac murmur History of heart attack Aortic stenosis Diastolic heart failure CVA (cerebral vascular accident) Accelerated essential hypertension Home Medications ?Medication ?Instructions ?Recorded ?Last Taken ?Type allopurinol 100 mg tablet 100 mg PO DAILY 04/20/21 12/27/23 History arctic sea 4 tablet PO DAILY 04/20/21 12/27/23 History ferrous gluconate 325 mg (37 mg 325 mg PO BID 04/20/21 12/27/23 History iron) tablet niacin 500 mg tablet 500 mg PO DAILY 04/20/21 12/27/23 History pantoprazole 40 mg tablet,delayed 40 mg PO DAILY 04/20/21 12/27/23 History release simvastatin 40 mg tablet 40 mg PO DAILY 04/20/21 12/27/23 History topiramate 50 mg tablet 50 mg PO BID 04/20/21 12/27/23 History vitamins A,C,A-fcpm-qdjwqs 4,296 1 cap PO BID 04/20/21 12/27/23 History mcg-226 mg-90 mg capsule (PreserVision AREDS) lisinopril 5 mg tablet 5 mg PO DAILY 05/19/21 12/27/23 History buspirone 10 mg tablet 10 mg PO BID 12/26/23 12/27/23 History ezetimibe 10 mg tablet 10 mg PO DAILY 12/26/23 12/27/23 History nitroglycerin 0.4 mg sublingual 0.4 mg sublingual Q5M PRN chest 12/26/23 Unknown History tablet pain apixaban 2.5 mg tablet (Eliquis) 2.5 mg PO BID 12/27/23 12/27/23 History levothyroxine 150 mcg tablet 150 mcg PO DAILY 12/27/23 12/27/23 History mecobalamin (vitamin B12) 2,500 2,500 mcg PO DAILY 12/27/23 12/27/23 History mcg chewable tablet sertraline 100 mg tablet 100 mg PO Q24H 12/27/23 12/27/23 History Allergy/AdvReac Type Severity Reaction Status Date / Time bee venom protein (honey bee) Allergy Anaphylaxis Verified 12/27/23 12:14 Family History Mother CVA (cerebral vascular accident) Father CHF (congestive heart failure) Surgical History History of tonsillectomy History of colonoscopy History of coronary artery stent placement Hx of appendectomy Social History Smoking Status: Never smoker alcohol intake: current alcohol intake frequency: a few times a month substance use type: does not use Review of Systems (Anesthesia) ROS Narrative System reviewed and no additional complaints, except as documented.
--- NOTE | 2023-12-27 13:57 | EX.PCM.CON.G ---
HPI Consult Data Date of Consult: 12/27/23 HPI Narrative Reason for Consultation: GI bleed HPI Narrative: SAIGE HAGEN, is a 83 M who presents with worsening fatigue and weakness of followed by melanotic stools. He has a history of CKD stage IIIB was found to have iron deficiency anemia. He reports that he was found to have severe anemia in February 2021 and required PRBC transfusion. He is currently taking iron tablets by mouth. The patient over the last several weeks has been going to [facility] and receiving blood transfusions, today, they did check the patient's stool which is positive for bleeding. Last blood transfusion was today. Patient also had some personal issues such as his son committed suicide yesterday, so there is added stress. Patient is here for evaluation. Patient did have a positive stool occult today as well as 1 unit of packed red blood cells given today. He denies hematemesis or hematochezia. He reports that he had colonoscopy and upper GI endoscopy in June 2020 and was told that he was all right. He had blood work on 03/28/2021 iron was 45, percentage saturation 16%, ferritin 34 with hemoglobin 8.4. Stool for occult blood on 05/05/2021 was positive. He received Iron infusion 300mg weekly x 4 in May 2021, CT a/p on 05/19/2021 showed Diverticulosis. 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 He was given Iron-Venofer IV in September/October 2021. He is on oral iron supplements. [facility] Medical History Hypersomnia Anxiety and depression Periodic limb movement Vitamin D deficiency Chronic kidney disease, stage 3 unspecified Angiodysplasia of duodenum with hemorrhage Sinus bradycardia Diverticulosis Macrocytosis Wears hearing aid Wears glasses Wears dentures Depression Thyroid disease Gout History of renal disease Low iron Anemia High cholesterol Restless legs Gastric reflux Non-smoker Shortness of breath on exertion History of echocardiogram History of stress test Hypertension Cardiology follow-up encounter Hx of cardiac murmur History of heart attack Aortic stenosis Diastolic heart failure CVA (cerebral vascular accident) Accelerated essential hypertension Home Medications ?Medication ?Instructions ?Recorded ?Last Taken ?Type allopurinol 100 mg tablet 100 mg PO DAILY 04/20/21 12/27/23 History arctic sea 4 tablet PO DAILY 04/20/21 12/27/23 History ferrous gluconate 325 mg (37 mg 325 mg PO BID 04/20/21 12/27/23 History iron) tablet niacin 500 mg tablet 500 mg PO DAILY 04/20/21 12/27/23 History pantoprazole 40 mg tablet,delayed 40 mg PO DAILY 04/20/21 12/27/23 History release simvastatin 40 mg tablet 40 mg PO DAILY 04/20/21 12/27/23 History topiramate 50 mg tablet 50 mg PO BID 04/20/21 12/27/23 History vitamins A,C,E-hmxf-pfying 4,296 1 cap PO BID 04/20/21 12/27/23 History mcg-226 mg-90 mg capsule (PreserVision AREDS) lisinopril 5 mg tablet 5 mg PO DAILY 05/19/21 12/27/23 History buspirone 10 mg tablet 10 mg PO BID 12/26/23 12/27/23 History ezetimibe 10 mg tablet 10 mg PO DAILY 12/26/23 12/27/23 History nitroglycerin 0.4 mg sublingual 0.4 mg sublingual Q5M PRN chest 12/26/23 Unknown History tablet pain apixaban 2.5 mg tablet (Eliquis) 2.5 mg PO BID 12/27/23 12/27/23 History levothyroxine 150 mcg tablet 150 mcg PO DAILY 12/27/23 12/27/23 History mecobalamin (vitamin B12) 2,500 2,500 mcg PO DAILY 12/27/23 12/27/23 History mcg chewable tablet sertraline 100 mg tablet 100 mg PO Q24H 12/27/23 12/27/23 History Allergy/AdvReac Type Severity Reaction Status Date / Time bee venom protein (honey bee) Allergy Anaphylaxis Verified 12/27/23 12:14 Family History Mother CVA (cerebral vascular accident) Father CHF (congestive heart failure) Surgical History History of tonsillectomy History of colonoscopy History of coronary artery stent placement Hx of appendectomy Social History Smoking Status: Never smoker alcohol intake: current alcohol intake frequency: a few times a month substance use type: does not use ROS ROS Narrative Constitutional: Reports chronic fatigue and weakness but no acute symptoms. No fever. HEENT: Reports systems reviewed and no addt'l complaints, except as documented Respiratory/Chest: No acute shortness of breath or respiratory distress or wheezing. CVS: No chest pain pressure or tightness. Aortic stenosis murmur Gastrointestinal: Denies coffee ground emesis, hematemesis or vomiting Genitourinary: Denies recent oliguria or hematuria. Denies burning urination or new urinary tract symptoms Musculoskeletal: Denies acute joint pain or limited range of motion. No acute injury Neurologic: Denies seizure-like symptoms. History of stroke in the past skin: No ulcer. No rash Endocrinology: Reports systems reviewed and no addt'l complaints, except as documented Hematologic/Lymphatic: Reports systems reviewed and no addt'l complaints, except as documented Rest 14 ROS are negative except as mentioned in HPI Physical Exam Narrative General: Alert, Oriented x3, Cooperative, average build. HEENT: Atraumatic, PERRLA, EOMI, Normocephalic Oral: Oral mucosa dry. No Gingival or Mucosal Lesions/ Ulcerations Neck: Supple, No JVD, Negative Carotid Bruits Chest wall/Lungs: Air entry diminished in bilateral lung bases. No crepitation/rhonchi Cardiovascular: Regular rate, Regular Rhythm, Normal S1, Normal S2, systolic murmur present over right second ICS with radiation to carotids., Grade 5/6 Abdomen: Bowel Sounds Present, Soft, Non Tender, Non-Distended : No dysuria. No renal angle tenderness. No suprapubic tenderness. Extremities: No edema, Capillary Refill Less than 3 Seconds Skin: No rashes, No breakdown Musculoskeletal: No Tenderness to Palpation of Joints or Extremities. ROM full and intact. Neurological: Cranial nerves II-XII grossly intact, DTR 2+/4. No acute focal neurological deficit. Psych/Mental Status: Normal Affect, Appropriate. Lab / Micro Data 12/27/23 12:45 12/27/23 12:45 Labs: Laboratory Results - last 24 hr 12/27/23 08:35: Crossmatch See Detail 12/27/23 12:45: WBC 6.0, RBC 2.28 L, Hgb 7.4 L, Hct 23.5 L, MCV 103.1 H, MCH 32.5 H, MCHC 31.5 L, RDW Std Deviation 62.4 H, RDW Coeff of Marcia 16.8 H, Plt Count 146 L, MPV 9.9, Immature Gran % (Auto) 0.500, Neut % (Auto) 65.6, Lymph % (Auto) 21.6, [place] % (Auto) 8.6, Eos % (Auto) 3.0, Baso % (Auto) 0.7, Absolute Neuts (auto) 4.0, Absolute Lymphs (auto) 1.30, Nucleated RBC % 0, PT 15.8 H, INR 1.3, Sodium 141, Potassium 5.5 H, Chloride 120 H, Carbon Dioxide 18.0 L, Anion Gap 3 L, BUN 80 H, Creatinine 2.19 H, Est GFR (MDRD) Af Amer 37 L, Est GFR (MDRD) Non-Af 31 L, BUN/Creatinine Ratio 36.5 H, Glucose 107 H, Calcium 8.6, Total Bilirubin 0.60, AST 13 L, ALT 20, Alkaline Phosphatase 73, Total Protein 5.8 L, Albumin 2.9 L, Globulin 2.9, Albumin/Globulin Ratio 1.0 Assessment & Plan Assessment/Plan (1) Acute on chronic anemia: (2) GI bleed: QUALIFIERS: GI bleed type/associated pathology: unspecified gastrointestinal hemorrhage type Qualified Code(s): K92.2 - Gastrointestinal hemorrhage, unspecified PLAN: Plan This is a 83-year-old gentleman is being admitted for severe anemia, stool for occult blood found positive and upper GI bleed Acute upper GI bleed: IV pantoprazole 40 mg every 12 hourly. Monitor vitals. Patient had last dose of Eliquis 2.5 mg twice daily today in the morning. Patient will undergo an upper endoscopy to evaluate his to GI tract. He may need colonoscopy if this is negative. He was explained alternatives, risk, benefits include not withstanding bleeding, infection, sepsis, perforation, need for emergent urgent . He will have an ASA of 3. Charges/Coding Visit Charges Inpatient E&M: 43504 Init Hosp L3
[2023-12-27 14:19] LABS: Magnesium 2.4 mg/dL (1.6-2.6)
--- NOTE | 2023-12-27 14:20 | PCM.POST.ANE ---
Anesthesia: Postop Eval I Current Vital Signs Temperature: 97.1 F Pulse Rate: 64 Blood Pressure: 120/47 Respiratory Rate: 14 Pulse Ox: 100 Oxygen Delivery Method: Room Air Assessment Airway patent: Yes Spontaneous unlabored respirations: Yes Mental status: Awake and Calm nausea: No Vomiting: No Anesthesia Complication: No Fluid Hydration Crystalloid volume administer (ml): 500 Total IV fluid infused: 500 Progress Note Anesthesia document: Postop Eval 1 completed: Yes
--- NOTE | 2023-12-27 14:40 | EKG12_ITS ---
Test Reason : POST OP Blood Pressure : / mmHG Vent. Rate : 057 BPM Atrial Rate : 076 BPM P-R Int : 000 ms QRS Dur : 090 ms QT Int : 424 ms P-R-T Axes : 063 004 033 degrees QTc Int : 412 ms Sinus rhythm with 2nd degree A-V block (Mobitz I) Abnormal ECG No previous ECGs available Confirmed by AAYUSH DONOVAN, KARO ([id number]), graphics editor BYRON GARZA ([id number]) on 01/02/2024 10:42:55 A M Referred By: JUAN M Confirmed By:SHAWNEE LOONEY MD
--- NOTE | 2023-12-27 14:42 | POSTOPAN2_ITS ---
Anesthesia Postop Eval I Sum Postop Eval Completion status Anesthesia document: Postop Eval 1 completed: Yes Anesthesia Postop Eval I Summary Anesthesia Postop Eval I Summary: Anesthesia Postop Eval I: Assessment Summary Airway patent Yes 12/27/23 14:21 LITHOPONE [email or web address] Spontaneous unlabored Yes 12/27/23 14:21 LITHOPONE [email or web address] respirations Mental status Awake,Calm 12/27/23 14:21 LITHOPONE [email or web address] nausea No 12/27/23 14:21 LITHOPONE [email or web address] Vomiting No 12/27/23 14:21 LITHOPONE [email or web address] Anesthesia Postop Eval I: Fluid Summary Crystalloid volume administer 500 12/27/23 14:21 LITHOPONE [email or web address] (ml) Colloids volume administered ( ml) Blood Product volume administered (ml) Total IV fluid infused 500 12/27/23 14:21 LITHOPONE [email or web address] Anesthesia Postop Eval I: Summary Notes Anesthesia Complication No 12/27/23 14:21 LITHOPONE [email or web address] Anesthesia Complication Comment: Post-operative progress note Anesthesia: Postop Eval II Evaluation Mental status: Awake and Calm Pain Level: 0 nausea: No Vomiting: No Complications Anesthesia Complication: No
--- NOTE | 2023-12-27 14:42 | PCM.POSTANE2 ---
Anesthesia Postop Eval I Sum Postop Eval Completion status Anesthesia document: Postop Eval 1 completed: Yes Anesthesia Postop Eval I Summary Anesthesia Postop Eval I Summary: Anesthesia Postop Eval I: Assessment Summary Airway patent Yes 12/27/23 14:21 TECHNICAL BUSINESS [email or web address] Spontaneous unlabored Yes 12/27/23 14:21 TECHNICAL BUSINESS [email or web address] respirations Mental status Awake,Calm 12/27/23 14:21 TECHNICAL BUSINESS [email or web address] nausea No 12/27/23 14:21 TECHNICAL BUSINESS [email or web address].[email or web address] Vomiting No 12/27/23 14:21 TECHNICAL BUSINESS [email or web address] Anesthesia Postop Eval I: Fluid Summary Crystalloid volume administer 500 12/27/23 14:21 TECHNICAL BUSINESS [email or web address] (ml) Colloids volume administered ( ml) Blood Product volume administered (ml) Total IV fluid infused 500 12/27/23 14:21 TECHNICAL BUSINESS [email or web address] Anesthesia Postop Eval I: Summary Notes Anesthesia Complication No 12/27/23 14:21 TECHNICAL BUSINESS [email or web address] Anesthesia Complication Comment: Post-operative progress note Anesthesia: Postop Eval II Evaluation Mental status: Awake and Calm Pain Level: 0 nausea: No Vomiting: No Complications Anesthesia Complication: No
--- NOTE | 2023-12-27 16:10 | OP.CCLET_ITS ---
12/27/2023 Arvind Meyers Re : Upper GI endoscopy procedure for Deshawn Chatman Dear Luigi This procedure was performed on Wednesday, December 27, 2023. My impressions and recommendations are as follows: Impressions : - Normal esophagus. - Normal stomach. - No gross lesions in the second portion of the duodenum. - No specimens collected. Recommendations : - Return patient to [facility] for ongoing care. - Resume previous diet. - Continue present medications. - Colonoscopy My findings are described in the full procedure note, which is enclosed. If I can be of further assistance, please feel free to contact me at . Sincerely, Ashvin Jones, 12/27/2023 4:09:58 PM This report has been signed electronically.
--- NOTE | 2023-12-27 16:10 | OP.EGD_ITS ---
Patient Name: Deshawn Chatman Procedure Date: 12/27/2023 1:31 PM Date of : 1940 Age: 83 Procedure: Upper GI endoscopy Indications: Iron deficiency anemia Providers: Ashvin Jones DO Medicines: Monitored Anesthesia Care Patient Profile: This is an 83 year old male. Refer to note in patient chart for documentation of history and physical. Patient has symptoms of acute dyspepsia. Complications: No immediate complications. Procedure: Pre-Anesthesia Assessment: - Prior to the procedure, a History and Physical was performed, and patient medications and allergies were reviewed. The patient is competent. The risks and benefits of the procedure and the sedation options and risks were discussed with the patient. All questions were answered and informed consent was obtained. Patient identification and proposed procedure were verified by the physician in the pre-procedure area. Mental Status Examination: normal. CV Examination: normal. Prophylactic Antibiotics: The patient does not require prophylactic antibiotics. Prior Anticoagulants: The patient has taken no anticoagulant or antiplatelet agents except for NSAID medication. ASA Grade Assessment: III - A patient with severe systemic disease. After reviewing the risks and benefits, the patient was deemed in satisfactory condition to undergo the procedure. The anesthesia plan was to use monitored anesthesia care (MAC). Immediately prior to administration of medications, the patient was re-assessed for adequacy to receive sedatives. The heart rate, respiratory rate, oxygen saturations, blood pressure, adequacy of pulmonary ventilation, and response to care were monitored throughout the procedure. The physical status of the patient was re-assessed after the procedure. After obtaining informed consent, the endoscope was passed under direct vision. Throughout the procedure, the patient's blood pressure, pulse, and oxygen saturations were monitored continuously. The gastroscope was introduced through the mouth, and advanced to the second part of duodenum. The upper GI endoscopy was accomplished without difficulty. The patient tolerated the procedure well. Scope In: 2:14:28 PM Scope Out: 2:16:26 PM Total Procedure Duration Time 0 hours 1 minute 58 seconds Findings: The examined esophagus was normal. The entire examined stomach was normal. No gross lesions were noted in the second portion of the duodenum. Impression: - Normal esophagus. - Normal stomach. - No gross lesions in the second portion of the duodenum. - No specimens collected. Recommendation: - Return patient to hospital [facility] for ongoing care. - Resume previous diet. - Continue present medications. - Colonoscopy Procedure Code(s): --- Professional --- 63144, Esophagogastroduodenoscopy, flexible, transoral; diagnostic, including collection of specimen(s) by brushing or washing, when performed (separate procedure) CPT copyright 2021 [employer]. All rights reserved. The codes documented in this report are preliminary and upon sales professional bilingual review may be revised to meet current compliance requirements. Ashvin Jones DO 12/27/2023 4:09:58 PM This report has been signed electronically. Number of Addenda: 0 Note Initiated On: 12/27/2023 1:31 PM
--- NOTE | 2023-12-27 17:01 | CASEMGMT ---
RN AVE BANKING REPRESENTATIVE CM to room to meet with patient for initial transition planning/care coordination assessment. KEVON DORADO introduced self and role at [facility]. Pt voices understanding and consents to assessment at this time. Pt resting in bed in no distress at this time. Family @ bedside and pt agreeable to them being present during assessment. Pt is A/O at this time and answers all questions appropriately. Care providers, pharmacy, and demographics verified/updated at this time. PCP: Dr Meyers Specialists:Dr Ignacio-oncology, Dr Jones- GI, Dr Jarad Can-cardiology ([place]), Dr Wen-nephrology ([place]) Preferred Pharmacy: [facility] Insurance: [facility] A/B Prescription Benefit: Yes LNOK: , Adina. Dtr, Imani. 9 other adult children. Living Arrangements: Lives w/ in one-story home w/basement w/ramp entrance. Dtr and son-in-law live next door. Pt is usually independent w/ADL's when he is at his baseline and does use AD to ambulate, but this past week has been weak, has had to use a walker a couple of days and needing some assistance. does the cooking. Dtr's do cleaning. Transportation: Hire drivers DME: States has the following DME: Pt has a cane and walker does not usually use either. HHC/SNF: No hx of SNF. 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 Pt wishes to return home and states has no concerns with going home at time of discharge. PLAN: Home w/family support. PT/OT evals pending. Elvira ZAMUDIO RN, CM
--- NOTE | 2023-12-27 17:12 | SUR.PHASEI ---
AT APPROXIMATELY 1830, DR YU NOTIFClarke VIA PHONE OF PATIENT'S RHYTHM IN PACU OF MOBITZ I, HEART RATE 48-55 AND THAT AN EKG WAS OBTAIN AND DR KINCAID WAS NOTIFIED.
[2023-12-27] MEDS: Pantoprazole Sodium 40 MG in 0.9% Normal Saline (100mL MB+) 100 ML 330 MG IV (18:45)
[2023-12-27] MEDS: 0.9% Normal Saline (1000mL) 1,000 ML 75 ML IV (18:45)
[2023-12-27 20:27] LABS: Hematocrit 24.3 % (40-54); Hemoglobin 7.6 g/dL (13.0-16.5)
[2023-12-27] MEDS: Sodium Ferric Gluconat/Sucrose 250 MG in 0.9% Normal Saline (250mL Bag) 250 ML 135 MG IV (21:11)
[2023-12-27] MEDS: Topiramate 50 MG Tablet PO (21:13)
[2023-12-27] MEDS: Multivitamin (Healthy Eyes) Capsule 1 CAP PO (21:13)
[2023-12-27] MEDS: busPIRone 5 MG Tablet 10 MG PO (21:14)
[2023-12-27] MEDS: Atorvastatin Calcium 20 MG Tablet PO (21:14)
[2023-12-28 03:17] LABS: Hematocrit 23.9 % (40-54); Hemoglobin 7.6 g/dL (13.0-16.5)
[2023-12-28 04:05] VITALS: BP 132/52; PULSE 56; RESP 17; TEMP 36.7; O2SAT 99
[2023-12-28 05:54] LABS: Absolute Lymphocyte Count 1.19 X10^3/uL (0.83-4.51); Absolute Neutrophil Count 4.2 X10^3/uL (2.0-7.7); Basophil# 0.03 X10^3/uL; Basophil% 0.5 % (0-1); Eosinophil# 0.32 X10^3/uL; Eosinophils% 5.2 % (0-5); Hematocrit 23.9 % (40-54); Hemoglobin 7.6 g/dL (13.0-16.5); Lymphocyte # 1.19 X10^3/ul (0.83-4.51); Lymphocyte % 19.2 % (19-41); Mean Corp Hgb Conc 31.8 g/dL (32-36); Mean Corpuscular Hgb 32.3 pg (27.0-32.0); Mean Corpuscular Volume 101.7 fL (80-94); Mean Platelet Vol. 10.7 fl (6.2-12.0); Monocyte# 0.45 X10^3/uL; Monocyte% 7.3 % (0-10); NRBC Flagged by Analyzer 0 % (0-5); Neutrophil # 4.18 X10^3/uL (2.7-7.7); Neutrophil % 67.3 % (47-70); Platelet Count 134 K/mm3 (150-450); RBC Distribution Width CV 17.9 % (11.6-14.6); RBC Distribution Width SD 64.7 fl (35.1-43.9); Red Blood Count 2.35 M/mm3 (4.6-6.2); White Blood Count 6.2 K/mm3 (4.4-11.0)
[2023-12-28] MEDS: Levothyroxine 150 MCG Tablet PO (06:14)
[2023-12-28 06:49] LABS: AST(SGOT) 16 U/L (15-37); Alanine Aminotransfer ALT/SGPT 20 U/L (16-61); Albumin, Serum 2.6 g/dL (3.2-5.0); Alkaline Phosphatase 62 U/L (45-117); Anion Gap 4 (5-15); BUN 73 mg/dL (7-18); BUN/Creat Ratio 33.2 RATIO (10-20); Bilirubin, Direct 0.19 mg/dL (0.00-0.30); Calcium,Total 8.2 mg/dL (8.5-10.1); Chloride 122 mmol/L (98-107); EST Glomerular Filtration Rate 31 mL/min (>60); Est Glom Filt Rate - Afr Amer 37 mL/min (>60); Globulin 2.5 g/dL (2.2-4.2); Glucose 103 mg/dL (74-106); Potassium 6.1 mmol/L (3.5-5.1); Protein, Total 5.1 g/dL (6.4-8.2); Sodium Level 144 mmol/L (136-145); Thyroid Stim Hormone (TSH) 4.31 uIU/mL (0.358-3.74)
--- NOTE | 2023-12-28 07:56 | PN.HOSP_ITS ---
Reason for Visit Reason for Visit: Diagnoses Anemia, unspecified (12/27/23) Gastrointestinal hemorrhage, unspecified (12/27/23) Subjective Subjective No further bleeding. States he has had periodic episodes of this. Denies any abdominal pain with this episode. Objective Data Objective Data Vital Signs: Vital Signs Temp Pulse Resp BP Pulse Ox O2 Del Method 36.7 C 56 L 17 132/52 H 99 Room Air 12/28/23 04:05 12/28/23 04:05 12/28/23 04:05 12/28/23 04:05 12/28/23 04:05 12/28/23 04:05 Oxygen Delivery Method Room Air Weight: 76.702 kg Body Mass Index (BMI) 26.4 Intake & Output: Intake and Output for Last 24 Hours 12/26/23 12/27/23 12/28/23 23:59 23:59 23:59 Intake Total 581 / 701 240 / 240 Output Total 350 / 350 Balance 581 / 351 -110 / -110 Lab / Micro Data 12/28/23 11:45 12/28/23 11:30 Labs: Laboratory Results - last 24 hr 12/27/23 08:35: Crossmatch See Detail 12/27/23 12:45: WBC 6.0, RBC 2.28 L, Hgb 7.4 L, Hct 23.5 L, MCV 103.1 H, MCH 32.5 H, MCHC 31.5 L, RDW Std Deviation 62.4 H, RDW Coeff of Marcia 16.8 H, Plt Count 146 L, MPV 9.9, Immature Gran % (Auto) 0.500, Neut % (Auto) 65.6, Lymph % (Auto) 21.6, [place] % (Auto) 8.6, Eos % (Auto) 3.0, Baso % (Auto) 0.7, Absolute Neuts (auto) 4.0, Absolute Lymphs (auto) 1.30, Nucleated RBC % 0, PT 15.8 H, INR 1.3, Sodium 141, Potassium 5.5 H, Chloride 120 H, Carbon Dioxide 18.0 L, Anion Gap 3 L, BUN 80 H, Creatinine 2.19 H, Est GFR (MDRD) Af Amer 37 L, Est GFR (MDRD) Non-Af 31 L, BUN/Creatinine Ratio 36.5 H, Glucose 107 H, Calcium 8.6, Magnesium 2.4, Total Bilirubin 0.60, AST 13 L, ALT 20, Alkaline Phosphatase 73, Total Protein 5.8 L, Albumin 2.9 L, Globulin 2.9, Albumin/Globulin Ratio 1.0 12/27/23 20:05: Hgb 7.6 L, Hct 24.3 L 12/28/23 02:13: Hgb 7.6 L, Hct 23.9 L 12/28/23 05:12: WBC 6.2, RBC 2.35 L, Hgb 7.6 L, Hct 23.9 L, MCV 101.7 H, MCH 32.3 H, MCHC 31.8 L, RDW Std Deviation 64.7 H, RDW Coeff of Marcia 17.9 H, Plt Count 134 L, MPV 10.7, Immature Gran % (Auto) 0.500, Neut % (Auto) 67.3, Lymph % (Auto) 19.2, Clinton % (Auto) 7.3, Eos % (Auto) 5.2 H, Baso % (Auto) 0.5, Absolute Neuts (auto) 4.2, Absolute Lymphs (auto) 1.19, Nucleated RBC % 0, Sodium 144, P otassium 6.1 H*, Chloride 122 H, Carbon Dioxide 18.0 L, Anion Gap 4 L, BUN 73 H, Creatinine 2.20 H, Estim Creat Clear Calc 24.20, Est GFR (MDRD) Af Amer 37 L, E st GFR (MDRD) Non-Af 31 L, BUN/Creatinine Ratio 33.2 H, Glucose 103, Calcium 8.2 L, Total Bilirubin 0.30, Direct Bilirubin 0.19, AST 16, ALT 20, Alkaline Phosphatase 62, Total Protein 5.1 L, Albumin 2.6 L, Globulin 2.5, TSH 4.31 H Physical Exam Const alert and no apparent distress HEENT head/scalp atraumatic and moist oral mucous membranes Resp normal respiratory effort, no retractions, no use of accessory muscles and clear to auscultation bilaterally Cardio regular rate, regular rhythm, S1 normal heart sound and S2 normal heart sound GI normal to inspection, nondistended, normoactive bowel sounds, soft to palpation, non-tender and non-distended Assessment & Plan Assessment/Plan (1) Acute on chronic anemia: (2) GI bleed: QUALIFIERS: GI bleed type/associated pathology: unspecified gastrointestinal hemorrhage type Qualified Code(s): K92.2 - Gastrointestinal hemorrhage, unspecified PLAN: Plan GI bleed * Resolved. EGD performed on the showed normal esophagus, normal stomach, no gross lesions in the second portion of the duodenum. 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 Given the hematochezia, I suspect the patient may have had a diverticular bleed. And this bleed was certainly exacerbated by him being on apixaban. * No further bleeding. Patient has a family emergency and already has a follow- up appoint with Dr. Jones on the . So we will have the patient do his have him discharged home, follow-up Dr. Jones on the and continue to hold his apixaban until he sees Dr. Jones. Acute blood loss anemia * Secondary GI bleed. Hemoglobin was 7.2 on the and as received 1 unit packed red blood cells and currently up to 7.6. * His iron is low but his ferritin is elevated. Patient did receive a dose of ferrous gluconate. * Would have him continue taking ferrous gluconate Hyperkalemia * Resolved with Kayexalate. Suspect due to GERMAN inhibitor which will be held moving forward. Nursing reports that the family mentioned that there is a family emergency and the patient would like to be discharged. I think that is reasonable for patient to return if he has worsening bleeding in the meantime.
[2023-12-28] MEDS: Sodium Polystyrene Sulfonate 15 GM/60 ML UDC PO (08:43)
[2023-12-28] MEDS: Pantoprazole Sodium 40 MG in 0.9% Normal Saline (100mL MB+) 100 ML 330 MG IV (08:44)
[2023-12-28] MEDS: Topiramate 50 MG Tablet PO (08:46)
[2023-12-28] MEDS: busPIRone 5 MG Tablet 10 MG PO (08:46)
[2023-12-28] MEDS: Sertraline 100 MG Tablet PO (08:46)
[2023-12-28] MEDS: Allopurinol 100 MG Tablet PO (08:46)
[2023-12-28] MEDS: Multivitamin (Healthy Eyes) Capsule 1 CAP PO (08:46)
[2023-12-28] MEDS: Ezetimibe 10 MG Tablet PO (08:46)
[2023-12-28 08:50] VITALS: BP 107/48; PULSE 55; RESP 18; TEMP 36.3; O2SAT 94
[2023-12-28 11:00] VITALS: PULSE 51
[2023-12-28 11:46] LABS: Absolute Lymphocyte Count 1.22 X10^3/uL (0.83-4.51); Absolute Neutrophil Count 4.2 X10^3/uL (2.0-7.7); Basophil# 0.03 X10^3/uL; Basophil% 0.5 % (0-1); Eosinophil# 0.23 X10^3/uL; Eosinophils% 3.8 % (0-5); Hemoglobin 7.6 g/dL (13.0-16.5); Lymphocyte # 1.22 X10^3/ul (0.83-4.51); Lymphocyte % 20.1 % (19-41); Mean Corp Hgb Conc 31.7 g/dL (32-36); Mean Corpuscular Hgb 32.3 pg (27.0-32.0); Mean Corpuscular Volume 102.1 fL (80-94); Mean Platelet Vol. 10.8 fl (6.2-12.0); Monocyte# 0.42 X10^3/uL; Monocyte% 6.9 % (0-10); NRBC Flagged by Analyzer 0 % (0-5); Neutrophil # 4.16 X10^3/uL (2.7-7.7); Neutrophil % 68.4 % (47-70); POSITIVE MORPHOLOGY YES; Platelet Count 146 K/mm3 (150-450); RBC Distribution Width CV 17.9 % (11.6-14.6); RBC Distribution Width SD 66.4 fl (35.1-43.9); Red Blood Count 2.35 M/mm3 (4.6-6.2); White Blood Count 6.1 K/mm3 (4.4-11.0)
[2023-12-28 11:48] VITALS: BP 112/48; PULSE 52; RESP 18; TEMP 36.7; O2SAT 98
[2023-12-28 11:51] LABS: Anion Gap 2 (5-15); BUN 70 mg/dL (7-18); BUN/Creat Ratio 31.8 RATIO (10-20); Calcium,Total 8.2 mg/dL (8.5-10.1); Chloride 121 mmol/L (98-107); EST Glomerular Filtration Rate 31 mL/min (>60); Est Glom Filt Rate - Afr Amer 37 mL/min (>60); Glucose 114 mg/dL (74-106); Potassium 5.3 mmol/L (3.5-5.1); Sodium Level 142 mmol/L (136-145)
[2023-12-28 11:53] LABS: Hematocrit 24.5 % (40-54); Hemoglobin 7.7 g/dL (13.0-16.5)
[2023-12-28] MEDS: 0.9% Saline Lock 10 ML Syringe IV (11:54)
--- NOTE | 2023-12-28 12:11 | DS.PCM_ITS ---
Providers Date of Admission: 12/27/23 Primary Care Physician: Dr. Arvind Meyers MD Consultations 12/27/23 16:16 Consult: Gastroenterology Routine Consulting Provider: [facility] Reason for Consult: GI bleed EMERGENT Consult: No MD Notified: Yes Date Notified: 12/27/23 Time Notified: 13:15 Method of Notification: ED Physician Initiated Reason For Visit: GI BLEED Diagnosis Discharge Diagnosis (1) Acute on chronic anemia: Status: Chronic Code(s): D64.9 - Anemia, unspecified (2) GI bleed: Status: Chronic Code(s): K92.2 - Gastrointestinal hemorrhage, unspecified Qualifiers: GI bleed type/associated pathology: unspecified gastrointestinal hemorrhage type Qualified Code(s): K92.2 - Gastrointestinal hemorrhage, unspecified Plan GI bleed * Resolved. EGD performed on the showed normal esophagus, normal stomach, no gross lesions in the second portion of the duodenum. 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 Given the hematochezia, I suspect the patient may have had a diverticular bleed. And this bleed was certainly exacerbated by him being on apixaban. * No further bleeding. Patient has a family emergency and already has a follow- up appoint with Dr. Jones on the . So we will have the patient do his have him discharged home, follow-up Dr. Jones on the and continue to hold his apixaban until he sees Dr. Jones. Acute blood loss anemia * Secondary GI bleed. Hemoglobin was 7.2 on the and as received 1 unit packed red blood cells and currently up to 7.6. * His iron is low but his ferritin is elevated. Patient did receive a dose of ferrous gluconate. * Would have him continue taking ferrous gluconate Hyperkalemia * Resolved with Kayexalate. Suspect due to GERMAN inhibitor which will be held moving forward. Nursing reports that the family mentioned that there is a family emergency and the patient would like to be discharged. I think that is reasonable for patient to return if he has worsening bleeding in the meantime. Medications at Discharge Home Medications allopurinol 100 mg tablet 100 mg PO DAILY gout 04/20/21 arctic sea 4 tablet PO DAILY supplement 04/20/21 ferrous gluconate 325 mg (37 mg iron) tablet 325 mg PO BID supplement 04/20/21 niacin 500 mg tablet 500 mg PO DAILY supplement 04/20/21 pantoprazole 40 mg tablet,delayed release 40 mg PO DAILY reflux 04/20/21 simvastatin 40 mg tablet 40 mg PO DAILY cholesterol 04/20/21 topiramate 50 mg tablet 50 mg PO BID seizures 04/20/21 vitamins A,C,C-wmkn-aruoea 4,296 mcg-226 mg-90 mg capsule (PreserVision AREDS) 1 cap PO BID vitamin 04/20/21 buspirone 10 mg tablet 10 mg PO BID mental health 12/26/23 ezetimibe 10 mg tablet 10 mg PO DAILY cholesterol 12/26/23 nitroglycerin 0.4 mg sublingual tablet 0.4 mg sublingual Q5M PRN chest pain 12/26/23 apixaban 2.5 mg tablet (Eliquis) 2.5 mg PO BID blood thinner 12/27/23 levothyroxine 150 mcg tablet 150 mcg PO DAILY thyroid 12/27/23 mecobalamin (vitamin B12) 2,500 mcg chewable tablet 2,500 mcg PO DAILY vitamin 12/27/23 sertraline 100 mg tablet 100 mg PO Q24H mental health 12/27/23 Hospital Course Operations None Procedures None Summary of Care Provided Minutes Spent on Discharge: 35 Hospital Course: Patient presents with hematochezia. EGD was unremarkable. Patient did receive 1 unit of part of blood cells as well as IV ferrous gluconate. Suspect the patient may have had a lower GI bleed due to diverticulosis or internal hemorrhoids that was exacerbated by being on apixaban. Patient will has a follow-up appointment with Dr. Jones on the . He currently has a family emergency and would like to be able to attend to that which I think is reasonable given the circumstances. Overall, the patient improved and remained stable faster initially anticipated, but also, patient had a family emergency that he had to attend to but given his stability I feel that is appropriate for him to be discharged. Weight / BMI Weight Weight: 76.702 kg Body Mass Index (BMI) 26.4 ABG / Lab / Microbiology Data 12/28/23 11:45 12/28/23 11:30 Laboratory: Laboratory Results - last 24 hr 12/27/23 08:35: Crossmatch See Detail 12/27/23 12:45: WBC 6.0, RBC 2.28 L, Hgb 7.4 L, Hct 23.5 L, MCV 103.1 H, MCH 32.5 H, MCHC 31.5 L, RDW Std Deviation 62.4 H, RDW Coeff of Marcia 16.8 H, Plt Count 146 L, MPV 9.9, Immature Gran % (Auto) 0.500, Neut % (Auto) 65.6, Lymph % (Auto) 21.6, [place] % (Auto) 8.6, Eos % (Auto) 3.0, Baso % (Auto) 0.7, Absolute Neuts (auto) 4.0, Absolute Lymphs (auto) 1.30, Nucleated RBC % 0, PT 15.8 H, INR 1.3, Sodium 141, Potassium 5.5 H, Chloride 120 H, Carbon Dioxide 18.0 L, Anion Gap 3 L, BUN 80 H, Creatinine 2.19 H, Est GFR (MDRD) Af Amer 37 L, Est GFR (MDRD) Non-Af 31 L, BUN/Creatinine Ratio 36.5 H, Glucose 107 H, Calcium 8.6, Magnesium 2.4, Total Bilirubin 0.60, AST 13 L, ALT 20, Alkaline Phosphatase 73, Total Protein 5.8 L, Albumin 2.9 L, Globulin 2.9, Albumin/Globulin Ratio 1.0 12/27/23 20:05: Hgb 7.6 L, Hct 24.3 L 12/28/23 02:13: Hgb 7.6 L, Hct 23.9 L 12/28/23 05:12: WBC 6.2, RBC 2.35 L, Hgb 7.6 L, Hct 23.9 L, MCV 101.7 H, MCH 32.3 H, MCHC 31.8 L, RDW Std Deviation 64.7 H, RDW Coeff of Marcia 17.9 H, Plt Count 134 L, MPV 10.7, Immature Gran % (Auto) 0.500, Neut % (Auto) 67.3, Lymph % (Auto) 19.2, [place]aca % (Auto) 7.3, Eos % (Auto) 5.2 H, Baso % (Auto) 0.5, Absolute Neuts (auto) 4.2, Absolute Lymphs (auto) 1.19, Nucleated RBC % 0, Sodium 144, P otassium 6.1 H*, Chloride 122 H, Carbon Dioxide 18.0 L, Anion Gap 4 L, BUN 73 H, Creatinine 2.20 H, Estim Creat Clear Calc 24.20, Est GFR (MDRD) Af Amer 37 L, E st GFR (MDRD) Non-Af 31 L, BUN/Creatinine Ratio 33.2 H, Glucose 103, Calcium 8.2 L, Total Bilirubin 0.30, Direct Bilirubin 0.19, AST 16, ALT 20, Alkaline Phosphatase 62, Total Protein 5.1 L, Albumin 2.6 L, Globulin 2.5, TSH 4.31 H 12/28/23 11:30: Sodium 142, Potassium 5.3 H, Chloride 121 H, Carbon Dioxide 19.0 L, Anion Gap 2 L, BUN 70 H, Creatinine 2.20 H, Estim Creat Clear Calc 24.20, Est GFR (MDRD) Af Amer 37 L, Est GFR (MDRD) Non-Af 31 L, BUN/Creatinine Ratio 31.8 H , Glucose 114 H, Calcium 8.2 L 12/28/23 11:45: Hgb 7.7 L, Hct 24.5 L D/C Instructions Discharge Diet: Low fat / Low cholesterol Meaningful Use Info Meaningful Use Meaningful Use Diagnoses (Choose all that apply): None applicable Ischemic Stroke Statin Dosing Therapy Reference: STATIN DOSE THERAPY REFERENCE: * Patients > 75 years receive moderate or high dose statin therapy. * Patients 75 years or YOUNGER should receive HIGH intensity statin dose unless contraindicated. You will be required to document reason for non-treatment if statin daily dose does not meet guidelines. HIGH DOSE STATIN THERAPY DAILY Atorvastatin > than or = to 40 mg Rosuvastatin > than or = to 20 mg Amlodipine + Atorvastatin > than or = to 2.5/40 mg Ezetimibe + Simvastatin 10/80 mg Simvastatin 80mg Discharge Plan Admission Admit Date/Time: 12/27/23 13:12 Primary Reason for Your Visit: GI bleed Attending Provider: Spencer Orr Primary Care Provider: Arvind Meyers Consulting Providers: Yohan Robert Instructions Additional Instructions / Restrictions: Your EGD (scope into your stomach) did not show any source of bleeding unlike last time in 2021. I suspect you may have had bleeding in your colon possibly due to diverticulosis or internal hemorrhoids that was exacerbated by apixaban. Advise you holding off on your apixaban (also known as Eliquis) to see Dr. Jones on the . If you have worsening bleeding, notify your physician or return to the emergency room. Additionally, your potassium is very elevated when he came in here. That can be due to lisinopril. I also recommend that you discontinue your lisinopril. Discharge Orders/Prescriptions Prescriptions: Continued allopurinol 100 mg tablet 100 mg PO DAILY simvastatin 40 mg tablet 40 mg PO DAILY pantoprazole 40 mg tablet,delayed release (DR/EC) 40 mg PO DAILY niacin 500 mg tablet 500 mg PO DAILY arctic sea capsule 4 tablet PO DAILY PreserVision AREDS [id number] bixq-cp-kpis capsule 1 cap PO BID ferrous gluconate 325 mg (37 mg iron) tablet 325 mg PO BID topiramate 50 mg tablet 50 mg PO BID buspirone 10 mg tablet 10 mg PO BID nitroglycerin 0.4 mg tablet, sublingual 0.4 mg sublingual Q5M PRN (Reason: chest pain) Rx Instructions: do not exceed 3 doses per episode ezetimibe 10 mg tablet 10 mg PO DAILY sertraline 100 mg tablet 100 mg PO Q24H levothyroxine 150 mcg tablet 150 mcg PO DAILY mecobalamin (vitamin B12) 2,500 mcg tablet,chewable 2,500 mcg PO DAILY Held Eliquis 2.5 mg tablet 2.5 mg PO BID Hold Instructions: Until okayed by Dr. Jones Discontinued lisinopril 5 mg tablet 5 mg PO DAILY Referrals / Follow Up: Arvind Meyers MD [Primary Care Provider] - Within 2 Weeks Ronald Ignacio MD [Med Staff - Active Staff] - 01/02/24 1:15 pm Ashvin Jones DO [Med Staff - Active Staff] - 12/31/23 10:30 am Disposition Disposition (needs filled in before D/C Order can be placed): Home, Self Care Charges/Coding Visit Charges Inpatient E&M: 87973 Disch Hosp >30min
[2023-12-28 12:12] LABS: Differential Indicated SCAN CRITERIA MET
[2023-12-28 12:17] VITALS: BP 112/48; PULSE 52; RESP 18; TEMP 36.7; O2SAT 98
[2023-12-28 13:23] LABS: Anisocytosis 2+; Differential Comment SCANNED; Macrocytosis 1+; Microcytosis 1+
== END 2023-12-28 13:08 | disposition home or self-care (01) | DRG 811 ==
LOC: ED 13:22 → PCU 13:30
PROVIDERS: Internal Medicine Gastroenterology; Nurse Practitioner; Admitting Provider Internal Medicine; Emergency Provider Emergency Medicine; PCP Internal Medicine
PROC: 0DJ08ZZ Inspection of Upper Intestinal Tract, Via Natural or Artificial Opening Endoscopic (ICD-10-PCS; CPT 43235; principal; 2023-12-27 13:25)
DX: D62 Acute posthemorrhagic anemia (principal); K57.31 Diverticulosis of large intestine without perforation or abscess with bleeding; I13.0 Hypertensive heart and chronic kidney disease with heart failure and stage 1 through stage 4 chronic kidney disease, or unspecified chronic kidney disease; D68.32 Hemorrhagic disorder due to extrinsic circulating anticoagulants; I50.32 Chronic diastolic (congestive) heart failure; N18.4 Chronic kidney disease, stage 4 (severe); D63.1 Anemia in chronic kidney disease; E03.9 Hypothyroidism, unspecified; I35.0 Nonrheumatic aortic (valve) stenosis; I44.1 Atrioventricular block, second degree; D50.9 Iron deficiency anemia, unspecified; I25.10 Atherosclerotic heart disease of native coronary artery without angina pectoris; E78.00 Pure hypercholesterolemia, unspecified; K63.5 Polyp of colon; E87.5 Hyperkalemia; K44.9 Diaphragmatic hernia without obstruction or gangrene; I25.2 Old myocardial infarction; K64.8 Other hemorrhoids; Z66 Do not resuscitate; Z86.73 Personal history of transient ischemic attack (TIA), and cerebral infarction without residual deficits; Z82.3 Family history of stroke; Z51.5 Encounter for palliative care; Z95.5 Presence of coronary angioplasty implant and graft; Z79.01 Long term (current) use of anticoagulants; T45.515A Adverse effect of anticoagulants, initial encounter
CPT/HCPCS: 36415; 36430; 80048; 80053; 80076; 82274; 82607; 82668; 82728; 82746; 83010; 83540; 83550; 83735; 84443; 85014; 85018; 85025; 85610; 86850; 86900; 86901; 86920; 86922; 93005; 94668; 99284; J7030; J7040; J7050; P9016; A4216; J2405; J2916

== ENCOUNTER 2024-02-04 11:45 | Day surgery (SDC) | payer MEDICARE, SELFPAY ==
[2024-02-04] VITALS (8 sets, daily range): BP systolic 102–167; BP diastolic 49–83; PULSE 62–90; RESP 16–18; TEMP 36.1–36.6; O2SAT 94–100; BMI 25.7
--- NOTE | 2024-02-04 12:15 | EKG12_ITS ---
Test Reason : SX Blood Pressure : / mmHG Vent. Rate : 058 BPM Atrial Rate : 058 BPM P-R Int : 222 ms QRS Dur : 092 ms QT Int : 428 ms P-R-T Axes : 052 003 040 degrees QTc Int : 420 ms Sinus bradycardia with 1st degree A-V block Otherwise normal ECG When compared with ECG of 27-DEC-2023 14:58, Sinus rhythm is no longer with 2nd degree A-V block (Mobitz I) Confirmed by Adolfo Arteaga ([id number]), graphics editor SCOT CHAN ([id number]) on 02/14/2024 6:42:10 AM Referred By: Arvind Meyers Confirmed By:Adolfo Arteaga
[2024-02-04] MEDS: Lactated Ringers 1,000 ML 15 ML IV (12:24)
--- NOTE | 2024-02-04 12:31 | NURSING ---
Upon adm pt states he had chest pain last night while at home that radiated to lt arm and back. Pt states that he thought about taking nitro SL but decided not wing. Pt currently denies any cp or sob. Dr Delatorre notified. EKG and troponin lab ordered and performed.
--- NOTE | 2024-02-04 12:53 | HP.PCM_ITS ---
History and Physical Date of Admission: 02/04/24 Chief Complaint: Hospital f/u: anemia Details: SAIGE HAGEN, is a 83 M who presents to the office today for hospital follow up. [facility] hospitalization 12.27.23 - 12.28.23 GI bleed EGD 12.27.23 Normal esophagus. Normal stomach. No gross lesions in the second portion of the duodenum No specimens collected. OV 12.31.23 pt reports that he has been having diarrhea for the past few days; unsure if there is blood in his stool or not. Pt states that he had a blood tra nsfusion on Saturday morning and has been having headaches when he reads now. ROS Const Constitutional: Positive for fatigue, headache(s) and weakness; No fever(s) or weight change ENT ENT: Positive for headache(s); No difficulty swallowing Gastro GI: Positive for Blood in stool; No abdominal pain, belching, bloating, change in bowel habits, change in stool character, coffee ground emesis, constipation, cramping, diarrhea, heartburn, difficulty swallowing, feeling full early, excessive flatus, incontinent of stools, Vomiting blood/hematemesis, loose stools, Black,tarry stools, nausea/dyspepsia, pain with swallowing, vomiting or other Musc Musculoskeletal: Positive for abnormal gait and muscle cramps; No joint pain Skin Skin: No yellowing of the eye or itchy eyes Neuro Neurology: Positive for abnormal gait, weakness and headache(s) Psych Psychiatric: No anxiety and No depression Endo Endocrine: Positive for fatigue; No weight change Aller/Imm Allergy/Immunologic: No itchy eyes Tommy/Lymp Hematologic/Lymphatic: Positive for easy bleeding; No easy bruising Exam Const General: cooperative and comfortable Nutritional Appearance: average body habitus and well nourished [facility] Head: normal to inspection Ears: hearing grossly normal bilaterally Nose: external nose normal Face and sinus: normal facial exam Mouth: oral mucosae normal Throat: posterior oropharynx normal Eyes General: appearance normal, both eyes and all related structures Neck Neck: normal visual inspection Chest Chest palpation & inspection: normal inspection of the chest and normal palpation of entire chest wall Resp Effort & Inspection: normal respiratory effort Auscultation: Bilateral: Clear to Auscultation Cardio Palpation: normal PMI Rate: regular rate Rhythm: regular rhythm GI Inspection: normal to inspection Auscultation: normal bowel sounds Percussion: normal to percussion Palpation: no hepatosplenomegaly Skin General: no rashes or lesions noted Neuro General: patient alert Extrem General: normal to inspection Psych Affect: normal affect Assessment and Plan Assessment and Plan (1) Iron (Fe) deficiency anemia: Status: Chronic Qualifiers: Iron deficiency anemia type: unspecified iron deficiency Qualified Code(s): D50.9 - Iron deficiency anemia, unspecified Comment: CKD associated with Iron deficiency Anemia, 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 Has Duodenal AVM. Iron profile corrected but Hgb is 10 with normal iron profile today. On Oral Iron. Plan: GI bleed * Resolved. EGD performed on the showed normal esophagus, normal stomach, no gross lesions in the second portion of the duodenum. 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 Given the hematochezia, I suspect the patient may have had a diverticular bleed. And this bleed was certainly exac erbated by him being on apixaban. Acute blood loss anemia * Secondary GI bleed. Hemoglobin was 7.2 on the 11th and as received 1 unit packed red blood cells and currently up to 7.6. * His iron is low but his ferritin is elevated. Patient did receive a dose of ferrous gluconate. * Would have him continue taking ferrous gluconateHyperkalemia * Resolved with Kayexalate. Suspect due to GERMAN inhibitor which will be held moving forward. (2) GI bleed: Status: Chronic Qualifiers: GI bleed type/associated pathology: unspecified gastrointestinal hemorrhage type Qualified Code(s): K92.2 - Gastrointestinal hemorrhage, unspecified Comment: FOBT positive stools due to Duodenal AVM s/p APC CT a/p on 05/19/2021 is negative. Bleeding may be made worse by Eliquis. Plan: Acute blood loss anemia * Secondary GI bleed. Hemoglobin was 7.2 on the 11th and as received 1 unit packed red blood cells and currently up to 7.6. * His iron is low but his ferritin is elevated. Patient did receive a dose of ferrous gluconate. * Would have him continue taking ferrous gluconate If patient is not found to have any bleeding in an upper or lower GI tract.Perform capsule endoscopy. (3) Splenomegaly: Status: Acute Plan: Patient does have mild splenomegaly. He has no history of liver disease. We will have to evaluate his liver more thoroughly with an ultrasound and possibly FibroScan. I have examined the patient and the H&P has been reviewed. There are no clinical changes since date of exam.
[2024-02-04 12:56] LABS: Troponin-I HS 7 pg/mL (3.0-78.0)
--- NOTE | 2024-02-04 12:58 | PCM.PRE.AN2 ---
ASA Classification* ASA Classification ASA Classification: 3 Assessment & Plan Anesthesia* Anesthesia Assessment Anesthesia Assessment: Discussed sedation and/or anesthesia options, risks, benefits, and alternatives with patient/parents/legal guardian/POA. Questions invited. The patient/parents/legal guardian/POA seems to understand and agrees to proceed with anesthesia plan. Reviewed the physical assessment, medical history, allergy history and patient home medications list prior to surgery/procedure/anesthetic and documented any changes. Performed airway and anesthesia risk assessments. Anesthesia Type Anesthesia Type: MAC (Patient had chest pain overnight. Twelve-lead EKG was normal. Troponin was 7 also normal. Okay to proceed.) History Source History Obtained from:: Patient and Chart Anesthesia Focused Assessment* Temperature: 97.6 F Pulse Rate: 62 Blood Pressure: 167/49 Respiratory Rate: 18 Pulse Ox: 100 Oxygen Delivery Method: Room Air Airway Assessment Mouth opens: >3 cm Mallampati Score: I Teeth Condition: Dentures (For for dentures.) Neck Range of motion (ROM): Limited ROM (Slight decrease in extension. Full blanco.) Pertinent Findings EKG Pertinent Findings:: February 04, 2024. Sinus bradycardia at 58 bpm with first-degree AV block. Focused Labs Anesthesia Preop lab: CBC WBC 7.7 K/mm3 (4.4-11.0) 01/30/24 09:40 RBC 2.79 M/mm3 (4.6-6.2) L 01/30/24 09:40 Hgb 9.2 g/dL (13.0-16.5) L 01/30/24 09:40 Hct 29.0 % (40-54) L 01/30/24 09:40 Plt Count 164 K/mm3 (150-450) 01/30/24 09:40 CHEMISTRY Potassium 4.0 mmol/L (3.5-5.1) 01/30/24 09:40 Sodium 142 mmol/L (136-145) 01/30/24 09:40 Magnesium 2.4 mg/dL (1.6-2.6) 12/27/23 12:45 BUN 58 mg/dL (7-18) H 01/30/24 09:40 Creatinine 2.42 mg/dL (0.70-1.30) H 01/30/24 09:40 Glucose 136 mg/dL (74-106) H 01/30/24 09:40 TSH 4.31 uIU/mL (0.358-3.74) H 12/28/23 05:12 COAG PT 15.8 SECONDS (11.7-14.9) H 12/27/23 12:45 Pre-Assessment Diagnosis/Proposed Procedure Planned Operative Procedure(s): EGD Anesthesia History 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 When Was Last Pacemaker Check QUESTION #4 FULL TEXT: You/Your Family Experience fever (hyperthermia) with Anesthesia Last Oral Intake Last Oral intake: Last Oral Intake NPO since 00:00 02/04/24 12:26 Meds taken in AM with sips of Yes 02/04/24 12:26 water? Meds patient instructed to take am of surgery PONV PONV - newspaper editor managing: PONV - newspaper editor managing Female No 01/31/24 09:33 HX of Motion Sickness No 01/31/24 09:33 HX of N/V After Surgery No 01/31/24 09:33 Non-Smoker Yes 01/31/24 09:33 Duration of Surgery greater No 01/31/24 09:33 than 60 minutes Number of Risk Factors 1 01/31/24 09:33 PONV Score Low Risk 01/31/24 09:33 Height & Weight Height & Weight: Anesthesia: Height & Weight Height 5 ft 7 in 02/04/24 12:26 Weight: 74.571 kg 02/04/24 12:26 Body Mass Index (BMI) 25.7 02/04/24 12:26 Respiratory Assessment Respiratory Assessment - newspaper editor managing: Respiratory Tract Infection Hx - newspaper editor managing Hx Respiratory Tract Infection No 01/31/24 09:33 STOP Sleep Apnea STOP Sleep Apnea - newspaper editor managing: STOP Sleep Apnea - newspaper editor managing Hx Hypertension Yes: CONTROLLED WITH MED 01/31/24 09:33 Hx Sleep Apnea No 01/31/24 09:33 CPAP BIPAP Do you snore loudly (louder No 01/31/24 09:33 than talking or can be heard Do you often feel tired/ No 01/31/24 09:33 fatigued/ sleepy during daytime? Has anyone observed you stop No 01/31/24 09:33 breathing during sleep? STOP Results Negative 01/31/24 09:33 QUESTION #5 FULL TEXT : Do you snore loudly (louder than talking or can be heard through closed doors)? Tobacco Use History Tobacco Use History - newspaper editor managing: Tobacco Use History - newspaper editor managing Tobacco Use Smoking Status Never smoker 01/31/24 09:33 Hx Tobacco Use No 01/31/24 09:33 Years Smoking Packs Smoked per Day Smoking Cessation Date was within the last 15 years Hx Smoking Cessation Date Hx Smoking Cessation Counseling Hematologic Medial History Hematologic Hx - newspaper editor managing: Hematologic Medical Hx - boiler welder Hx of Blood Transfusion Yes 01/31/24 09:33 Hx of Transfusion in last 3 Yes 01/31/24 09:33 Months Date of Last Transfusion (if 12/27/23 01/31/24 09:33 within last 3 months) Ever experience any problems No 01/31/24 09:33 with transfusion(s)? Specify any problems Hx of Preganancy in last 3 N/A 01/31/24 09:33 Months Nurse Filling Out Transfusion NBUCHER 01/31/24 09:33 & Questions: Date: 01/31/24 01/31/24 09:33 Time: 09:34 01/31/24 09:33 Patient unable to answer at this time (ie. confused, unrespo /Reproduction History /Reproductive History - newspaper editor managing: /Reproductive Hx- newspaper editor managing Hx Now Gestational Age (in weeks): EDC: Hx Hx Para Hx Section SAB No 01/31/24 09:33 Active Medications Active Medications: Current Medications Generic Name Dose Route Start Last Admin Trade Name Freq PRN Reason Stop Dose Admin Lactated Ringer's 1,000 mls @ 15 mls/hr 02/04/24 12:00 02/04/24 12:24 IV 15 mls/hr .Q48H TIFFANY Administration PFSH Medical History History of GI bleed Hypersomnia Anxiety and depression Periodic limb movement Vitamin D deficiency Chronic kidney disease, stage 3 unspecified Angiodysplasia of duodenum with hemorrhage Sinus bradycardia Diverticulosis Macrocytosis Anemia in CKD (chronic kidney disease) History of colon polyps Wears hearing aid Wears glasses Wears dentures Depression Thyroid disease Gout History of renal disease Low iron Anemia High cholesterol Restless legs Gastric reflux Non-smoker Shortness of breath on exertion History of echocardiogram History of stress test Hypertension Cardiology follow-up encounter Hx of cardiac murmur History of heart attack Splenomegaly Iron (Fe) deficiency anemia Bilateral carotid artery stenosis Aortic stenosis Diastolic heart failure CVA (cerebral vascular accident) Accelerated essential hypertension Home Medications ?Medication ?Instructions ?Recorded ?Last Taken ?Type allopurinol 100 mg tablet 100 mg PO DAILY gout 04/20/21 02/03/24 History arctic sea 4 tablet PO DAILY supplement 04/20/21 02/03/24 History ferrous gluconate 325 mg (37 mg 325 mg PO BID supplement 04/20/21 02/03/24 History iron) tablet niacin 500 mg tablet 500 mg PO DAILY supplement 04/20/21 02/03/24 History pantoprazole 40 mg tablet,delayed 40 mg PO DAILY reflux 04/20/21 02/04/24 History release simvastatin 40 mg tablet 40 mg PO DAILY cholesterol 04/20/21 02/03/24 History topiramate 50 mg tablet 50 mg PO BID seizures 04/20/21 02/03/24 History vitamins A,C,X-ylha-bzpfqs 4,296 1 cap PO BID vitamin 04/20/21 02/03/24 History mcg-226 mg-90 mg capsule (PreserVision AREDS) buspirone 10 mg tablet 10 mg PO BID mental health 12/26/23 02/04/24 History ezetimibe 10 mg tablet 10 mg PO DAILY cholesterol 12/26/23 02/03/24 History nitroglycerin 0.4 mg sublingual 0.4 mg sublingual Q5M PRN chest 12/26/23 12/23/23 History tablet pain apixaban 2.5 mg tablet (Eliquis) 2.5 mg PO BID blood thinner 12/27/23 01/30/24 History levothyroxine 150 mcg tablet 150 mcg PO DAILY thyroid 12/27/23 02/04/24 History mecobalamin (vitamin B12) 2,500 2,500 mcg PO DAILY vitamin 12/27/23 02/03/24 History mcg chewable tablet sertraline 100 mg tablet 100 mg PO Q24H mental health 12/27/23 02/04/24 History Allergy/AdvReac Type Severity Reaction Status Date / Time bee venom protein (honey bee) Allergy Anaphylaxis Verified 02/04/24 12:18 Family History Mother CVA (cerebral vascular accident) Father CHF (congestive heart failure) Surgical History History of esophagogastroduodenoscopy (EGD) History of tonsillectomy History of colonoscopy History of coronary artery stent placement Hx of appendectomy Social History Smoking Status: Never smoker alcohol intake: current alcohol intake frequency: a few times a month substance use type: does not use Review of Systems (Anesthesia) ROS Narrative System reviewed and no additional complaints, except as documented.
--- NOTE | 2024-02-04 13:00 | EGD_PTH ---
PATIENT: SAIGE HAGEN LOC: EN U#:[id number] AGE/SX: 83/M ROOM: RE02/04/[address]: Dr. Ashvin Jones DO : 1940 BED: DIS: 02/04/2024 SPEC #: [id number] RECD: 02/04/24 16:48 STATUS: JENNIFER GRAHAM #: [id number] RANULFO: 02/04/24 13:[address]: Ashvin Jones DEPT: SURGICAL PATHOLOGY RECD BY: Per Barrios ENTERED: 02/05/24 08:50 SP TYPE: EGD BIOPSY DEIRDRE DR: Dr. Arvind Meyers MD Tissues: A - COLON BIOPSY B - Duodenum, NOS Procedures: Surgery Specimen Level IV HEADER OPERATION: EGD, biopsy, electrohemostasis PRE-OP DIAGNOSIS: Iron deficiency anemia, GI bleed TISSUE SUBMITTED: A- Jejunal ulcer biopsy, B- Duodenal ulcer biopsy MICROSCOPIC DIAGNOSIS A. Jejunal ulcer, biopsy: Mild chronic and focal acute inflammation. B. Duodenal ulcer, biopsy: Tubular adenoma. Focal mucosal denudation. Mild acute inflammation. / 02/06/2024 MICROSCOPIC DESCRIPTION Slides are reviewed. GROSS DESCRIPTION A. Received in fixative is one container labeled with the patient's name and designated Jejunal ulcer biopsy. The specimen consists of two irregular fragments of light zavaleta soft tissue that in aggregate measure 0.6 x 0.3 x 0.1 cm. The specimen is totally submitted in one cassette. B. Received in fixative is one container labeled with the patient's name and designated Duodenal ulcer biopsy. The specimen consists of one irregular fragment of light zavaleta soft tissue that measures 0.3 x 0.3 x 0.1 cm. The specimen is totally submitted in one cassette. 02/05/2024 TC:2 CPT:17056y5
--- NOTE | 2024-02-04 13:52 | OP.EGD_ITS ---
Patient Name: Deshawn Chatman Procedure Date: 02/04/2024 1:24 PM Date of : 1940 Age: 83 Procedure: Upper GI endoscopy Indications: Melena, Suspected upper gastrointestinal bleeding, Suspected upper gastrointestinal bleeding in patient with chronic blood loss Providers: Ashvin Jones DO Medicines: Monitored Anesthesia Care, Propofol per Anesthesia Patient Profile: This is an 83 year old male. Refer to note in patient chart for documentation of history and physical. Patient has symptoms. Complications: No immediate complications. Procedure: Pre-Anesthesia Assessment: - Prior to the procedure, a History and Physical was performed, and patient medications and allergies were reviewed. The patient is competent. The risks and benefits of the procedure and the sedation options and risks were discussed with the patient. All questions were answered and informed consent was obtained. Patient identification and proposed procedure were verified by the physician in the pre-procedure area. Mental Status Examination: alert and oriented. Airway Examination: normal oropharyngeal airway and neck mobility. Respiratory Examination: clear to auscultation. CV Examination: normal. Prophylactic Antibiotics: The patient does not require prophylactic antibiotics. Prior Anticoagulants: The patient has taken no anticoagulant or antiplatelet agents except for NSAID medication. ASA Grade Assessment: II - A patient with mild systemic disease. After reviewing the risks and benefits, the patient was deemed in satisfactory condition to undergo the procedure. The anesthesia plan was to use monitored anesthesia care (MAC). Immediately prior to administration of medications, the patient was re-assessed for adequacy to receive sedatives. The heart rate, respiratory rate, oxygen saturations, blood pressure, adequacy of pulmonary ventilation, and response to care were monitored throughout the procedure. The physical status of the patient was re-assessed after the procedure. After obtaining informed consent, the endoscope was passed under direct vision. Throughout the procedure, the patient's blood pressure, pulse, and oxygen saturations were monitored continuously. The colonoscope was introduced through the mouth, and advanced to the second part of duodenum. The upper GI endoscopy was accomplished without difficulty. The patient tolerated the procedure well. Scope In: 1:33:39 PM Scope Out: 1:44:51 PM Total Procedure Duration Time 0 hours 11 minutes 12 seconds Findings: The examined esophagus was normal. No gross lesions were noted in the entire examined stomach. One non-bleeding linear duodenal ulcer with no stigmata of bleeding was found in the third portion of the duodenum. The lesion was 4 mm in largest dimension. Biopsies were taken with a cold forceps for histology. Verification of patient identification for the specimen was done. Estimated blood loss was minimal. Two 4 mm angiodysplastic lesions with bleeding were found in the fourth portion of the duodenum. Coagulation for hemostasis using heater probe was successful. Estimated blood loss was minimal. Two 5 mm angiodysplastic lesions with typical arborization were found in the jejunum. Coagulation for hemostasis using heater probe was successful. Estimated blood loss was minimal. Impression: - Normal esophagus. - No gross lesions in the entire stomach. - Non-bleeding duodenal ulcer with no stigmata of bleeding. Biopsied. - Two bleeding angiodysplastic lesions in the duodenum. Treated with a heater probe. - Two angiodysplastic lesions in the jejunum. Treated with a heater probe. Recommendation: - Discharge patient to home. - Resume previous diet. - Continue present medications. - Await pathology results. Procedure Code(s): --- Professional --- 48967, 59, Esophagogastroduodenoscopy, flexible, transoral; with control of bleeding, any method 99034, 51, Esophagogastroduodenoscopy, flexible, transoral; with biopsy, single or multiple CPT copyright 2021 [employer]. All rights reserved. The codes documented in this report are preliminary and upon records management clerk review may be revised to meet current compliance requirements. Ashvin Jones DO 02/04/2024 1:52:25 PM This report has been signed electronically. Number of Addenda: 0 Note Initiated On: 02/04/2024 1:24 PM
--- NOTE | 2024-02-04 13:52 | OP.CCLET_ITS ---
02/04/2024 Arvind Meyers Re : Upper GI endoscopy procedure for Deshawn Chatman Elizabethr Luigi This procedure was performed on Sunday, February 04, 2024. My impressions and recommendations are as follows: Impressions : - Normal esophagus. - No gross lesions in the entire stomach. - Non-bleeding duodenal ulcer with no stigmata of bleeding. Biopsied. - Two bleeding angiodysplastic lesions in the duodenum. Treated with a heater probe. - Two angiodysplastic lesions in the jejunum. Treated with a heater probe. Recommendations : - Discharge patient to home. - Resume previous diet. - Continue present medications. - Await pathology results. My findings are described in the full procedure note, which is enclosed. If I can be of further assistance, please feel free to contact me at . Sincerely, Ashvin Jones, 02/04/2024 1:52:25 PM This report has been signed electronically.
--- NOTE | 2024-02-04 13:53 | PCM.POST.ANE ---
Anesthesia: Postop Eval I Current Vital Signs Temperature: 97.5 F Pulse Rate: 84 Blood Pressure: 107/62 Respiratory Rate: 16 Pulse Ox: 95 Oxygen Delivery Method: Room Air Assessment Airway patent: Yes Spontaneous unlabored respirations: Yes Mental status: Asleep nausea: No Vomiting: No Anesthesia Complication: No Fluid Hydration Crystalloid volume administer (ml): 900 Total IV fluid infused: 900 Progress Note Anesthesia document: Postop Eval 1 completed: Yes
--- NOTE | 2024-02-04 16:54 | PCM.POSTANE2 ---
Anesthesia Postop Eval I Sum Postop Eval Completion status Anesthesia document: Postop Eval 1 completed: Yes Anesthesia Postop Eval I Summary Anesthesia Postop Eval I Summary: Anesthesia Postop Eval I: Assessment Summary Airway patent Yes 02/04/24 13:54 [email or web address] Spontaneous unlabored Yes 02/04/24 13:54 [email or web address] respirations Mental status Asleep 02/04/24 13:54 [email or web address] nausea No 02/04/24 13:54 [email or web address] Vomiting No 02/04/24 13:54 [email or web address] Anesthesia Postop Eval I: Fluid Summary Crystalloid volume administer 900 02/04/24 13:54 [email or web address] (ml) Colloids volume administered ( ml) Blood Product volume administered (ml) Total IV fluid infused 900 02/04/24 13:54 [email or web address] Anesthesia Postop Eval I: Summary Notes Anesthesia Complication No 02/04/24 13:54 [email or web address] Anesthesia Complication Comment: Post-operative progress note Anesthesia: Postop Eval II Evaluation Mental status: Awake and Calm Pain Level: 0 nausea: No Vomiting: No Complications Anesthesia Complication: No
== END 2024-02-04 14:42 | disposition home or self-care (01) ==
LOC: EN 11:51 → AC 11:54
PROVIDERS: Anesthesiology; PCP Internal Medicine; Referring Provider Internal Medicine; Visit Provider Internal Medicine Gastroenterology
PROC: 0DJ08ZZ Inspection of Upper Intestinal Tract, Via Natural or Artificial Opening Endoscopic (ICD-10-PCS; CPT 43235; principal; 2024-02-04 12:55)
DX: K31.811 Angiodysplasia of stomach and duodenum with bleeding (principal); N18.30 Chronic kidney disease, stage 3 unspecified; D13.2 Benign neoplasm of duodenum; D50.0 Iron deficiency anemia secondary to blood loss (chronic); K26.9 Duodenal ulcer, unspecified as acute or chronic, without hemorrhage or perforation; K28.4 Chronic or unspecified gastrojejunal ulcer with hemorrhage; K21.9 Gastro-esophageal reflux disease without esophagitis; D63.1 Anemia in chronic kidney disease; I12.9 Hypertensive chronic kidney disease with stage 1 through stage 4 chronic kidney disease, or unspecified chronic kidney disease; I25.2 Old myocardial infarction; E78.00 Pure hypercholesterolemia, unspecified; E07.9 Disorder of thyroid, unspecified; R16.1 Splenomegaly, not elsewhere classified; Z95.5 Presence of coronary angioplasty implant and graft; Z90.49 Acquired absence of other specified parts of digestive tract; Z79.01 Long term (current) use of anticoagulants; Z79.890 Hormone replacement therapy; Z79.899 Other long term (current) drug therapy; Z86.73 Personal history of transient ischemic attack (TIA), and cerebral infarction without residual deficits
CPT/HCPCS: 43239; 43255; 84484; 88305; 93005; J7120; J2405

== ENCOUNTER → 2024-02-19 | Outpatient (CLI) | payer MEDICARE, SELFPAY ==
--- NOTE | 2024-02-19 09:47 | MRI_ITS ---
MR Enterography Abdomen/Pelvis WO/W Contrast 02/19/2024 12:03 PM COMPARISON: None available. CLINICAL HISTORY: K56.699 - Other intestinal obstruction unspecified as to parti... -- PT C/O BLOODY STOOL X 2 MON TECHNIQUE: Following oral administration of enteric contrast and administration of glucagon, multiplanar T1 and T2 weighted images along with dynamic post-gadolinium images were obtained through the abdomen and pelvis. FINDINGS: GI Tract: Normal caliber. Mild asymmetric wall thickening of several loops of jejunum with intramural edema and mural hyperenhancement. No stricture, fistula, or obstruction. No drainable fluid collections. Liver: Unremarkable Gallbladder: Unremarkable Spleen: Unremarkable Pancreas: Unremarkable Adrenal Glands: Unremarkable Kidneys: Simple 2.6 cm cyst in the left upper renal pole. Reproductive: Unremarkable Bladder: Unremarkable Lymphadenopathy: Absent Ascites: Absent Bones: No suspicious lesions. Diffuse degenerative changes. MRI/Enterography Abd/Pel IMPRESSION: Findings most consistent with an acute flare of Crohn''s disease. No stricture, fistula, or obstruction. No drainable fluid collections. Electronically Signed: Ayden Park MD at 16:43 EDT ,
[2024-02-19 11:29] VITALS: BP 129/82; PULSE 65; RESP 16; O2SAT 100; BMI 25.8
[2024-02-19] MEDS: Glucagon 1 MG/ML Syringe IV (12:24)
[2024-02-19 12:44] VITALS: BP 155/53; PULSE 80; RESP 16; O2SAT 98
== END | disposition home or self-care (01) ==
PROVIDERS: PCP Internal Medicine; Referring Provider Internal Medicine Gastroenterology; Visit Provider Internal Medicine Gastroenterology
DX: K56.699 Other intestinal obstruction unspecified as to partial versus complete obstruction (principal)
CPT/HCPCS: 74183; 96374; A9575; A4216; J1610